=== PATIENT | female | born 1980 ===

== ENCOUNTER 2018-04-18 06:53 | Emergency (ER) | payer SELFPAY ==
[2018-04-18] MEDS ORDERED: Sodium Chloride 0.9% 1,000 ML IV ONE (07:25)
--- NOTE | 2018-04-18 07:27 | C.PDOC ---
History Of Present Illness 38 year old female presents to ED complains waking at 3am with right sided flank pain that radiates to the groin. She reports urinary frequency and having mild dysuria this morning. Patient states the pain has worsened and unrelieved by Tylenol and could not sleep prompting ED visit. She also reports nausea but no vomiting. Denies fever, chills, diarrhea, or vaginal bleeding. Time Seen by Provider: 04/18/18 07:20 Chief Complaint (Nursing): Abdominal Pain History Per: Patient History/Exam Limitations: no limitations Onset/Duration Of Symptoms: Hrs Current Symptoms Are (Timing): Still Present Radiation Of Pain To:: Flank Quality Of Discomfort: "Pain" Associated Symptoms: Nausea, Urinary Symptoms. denies: Vomiting, Diarrhea Alleviating Factors: None. denies: OTC Meds Recent travel outside of the [place]: No Additional History Per: Patient Past Medical History Reviewed: Historical Data, Nursing Documentation, Vital Signs Vital Signs: Last Vital Signs Temp 98 F 04/18/18 07:08 Pulse 72 04/18/18 07:08 Resp 20 04/18/18 07:08 BP 124/84 04/18/18 07:08 Pulse Ox 97 04/18/18 07:08 Family History: States: Unknown Family Hx - Social History Hx Alcohol Use: No Hx Substance Use: No Review Of Systems Except As Marked, All Systems Reviewed And Found Negative. Constitutional: Negative for: Fever, Chills Gastrointestinal: Positive for: Nausea. Negative for: Vomiting, Diarrhea, Constipation Genitourinary: Positive for: Dysuria, Frequency. Negative for: Incontinence, Hematuria, Vaginal Discharge, Vaginal Bleeding Musculoskeletal: Positive for: Back Pain (right flank) Neurological: Negative for: Weakness, Numbness Physical Exam - Physical Exam Appears: Non-toxic, Other (uncomfortable, pacing back and forth) Skin: Normal Color, Warm, Dry Head: Atraumatic, Normacephalic Eye(s): bilateral: Normal Inspection Oral Mucosa: Moist Neck: Normal ROM, Supple Chest: Symmetrical Cardiovascular: Rhythm Regular, No Murmur Respiratory: Normal Breath Sounds, No Rales, No Rhonchi, No Wheezing Gastrointestinal/Abdominal: Soft, No Tenderness, No Guarding, No Rebound Back: CVA Tenderness (mild right), No Vertebral Tenderness Extremity: Normal ROM Neurological/Psych: Oriented x3, Normal Speech ED Course And Treatment - Laboratory Results Result Diagrams: 10/04/18 07:28 04/18/18 07:28 O2 Sat by Pulse Oximetry: 97 (RA) Pulse Ox Interpretation: Normal - CT Scan/US ABd & Pelvis CT Other Rad Studies (CT/US): Read By Radiologist, Radiology Report Reviewed CT/US Interpretation: Accession No. : [id number]. Patient Name / ID : VICENTE FERNÁNDEZ / [id number]. Exam Date : 04/18/2018 07:48:52 ( Approved ). Study Comment : Sex / Age : F / 38Y. Creator : Shila Britton RT,CT. Dictator : Dom Gold MD. Shipping Processor : Rn Med Surg : Dom Gold MD. Approver2 : Report Date : 04/18/2018 07:53:11. My Comment : . Date of service: 04/18/2018. PROCEDURE: CT Abdomen and Pelvis without intravenous contrast. HISTORY: Right flank pain. COMPARISON: None. TECHNIQUE: Multiple contiguous axial images were performed through the abdomen and pelvis without the use of intravenous contrast. Subsequently, sagittal and coronal reformatted images were obtained. All radiation dose: Total exam DLP = 631 mGy-cm. This CT exam was performed using one or more of the following dose reduction techniques: Automated exposure control, adjustment of the mA and/or kV according to patient size, and/or use of iterative reconstruction technique. FINDINGS: LOWER THORAX: Mild nodular consolidation within the medial aspect of the right middle lobe. Additional focal nodular consolidation measuring 7.6 millimeter seen within medial aspect of the right lower lobe. Scattered atelectasis. LIVER: Mottled heterogeneous attenuation of the right hepatic lobe with several scattered hypoattenuated foci noted. This is of uncertain clinical etiology and further evaluation with a dedicated multiphasic contrast enhanced CT scan of the abdomen and pelvis is recommended. Underlying hepatic infiltrative process and/or disease is not excluded. Clinical correlation. GALLBLADDER AND BILE DUCTS: Unremarkable. PANCREAS: Unremarkable. No gross lesion or ductal dilatation. SPLEEN: Unremarkable. S plenule. ADRENALS: Unremarkable. No mass. KIDNEYS AND URETERS: Mild right hydroureteronephrosis extending to the level of an obstructing 3 millimeter calculus in the distal right ureter on series 3, image 154. Additional 2.5 millimeter calculus in the lower pole of the right kidney. VASCULATURE: Unremarkable. No aortic aneurysm. BOWEL: Underdistended and or mildly thickened colon. Correlation. APPENDIX: Unremarkable. Normal appendix. PERITONEUM: Unremarkable. No free fluid. No free air. LYMPH NODES: Unremarkable. No enlarged lymph nodes. BLADDER: Unremarkable. REPRODUCTIVE: Bulky heterogeneous uterus and bilateral adnexa. BONES: No acute fracture. OTHER FINDINGS: Punctate calcification in the left breast. Clinical correlation. Correlation with mammogram may be helpful if clinically indicated. IMPRESSION: Mild right hydroureteronephrosis extending to the level of an obstructing 3 millimeter calculus in the distal right ureter on series 3, image 154. Additional 2.5 millimeter calculus in the lower pole of the right kidney. Mottled heterogeneous attenuation of the right hepatic lobe with several scattered hypoattenuated foci noted. This is of uncertain clinical etiology and further evaluation with a dedicated multiphasic contrast enhanced CT scan of the abdomen and pelvis is recommended. Underlying hepatic infiltrative process and/or disease is not excluded. Clinical correlation. Punctate calcification in the left breast. Clinical correlation. Correlation with mammogram may be helpful if clinically indicated. Medical Decision Making Medical Decision Making: Impression: right flank tenderness, appears to be renal colic and possible stone Plan: * Labs * IV NS, Toradol, Zofran * CT A/P Progress: Labs reviewed mild hypokalemia and corrected with oral KCL. UA shows blood and LE. CT reviewed shows 3mm obstructing stone. Patient re-evaluated and was resting comfortably on stretcher and reported feeling better, pain had improved. Patient has no fever and stable vital signs. Discussed results of CT and lab findings with patient and the plan for discharge and to follow up with urologist. All questions answered. Patient agreed and feels comfortable with discharge and rx given. Disposition Counseled Patient/Family Regarding: Diagnosis, Need For Followup, Rx Given - Disposition Referrals: Jake Garcia MD [Staff Provider] - Disposition: HOME/ ROUTINE Disposition Time: 10:27 Condition: IMPROVED Additional Instructions: You were evaluated in ED today for flank pain and your studies show you have 3mm kidney stone which will likely pass. Drink plenty of fluids and take pain medicine as needed. Note Percocet is meant for severe pain, it is narcotic medication and can cause nausea/vomiting/drowsiness. Take Flomax to help urinate and excrete the stone. Take antibiotic for urine infection. Recommend follow up with urologist Prescriptions: Ciprofloxacin [Cipro] 1 tab PO BID #10 tab Ibuprofen [Motrin] 600 mg PO Q8 #30 tab oxyCODONE/Acetaminophen [Percocet 5/325 mg Tab] 1 tab PO Q8 PRN #10 tab PRN Reason: Pain, Severe (8-10) Tamsulosin [Flomax] 0.4 mg PO DAILY #10 cap Instructions: Kidney Stones (DC) Forms: [employer] (Kyrgyz) - POA Present On Arrival: None - Clinical Impression Clinical Impression: Nephrolithiasis - PA / STOCK CLERK / Resident Statement MD/DO has reviewed & agrees with the documentation as recorded. - Scribe Statement The provider has reviewed the documentation as recorded by the Scribe Baylee Rivera All medical record entries made by the Vicky were at my direction and personally dictated by me. I have reviewed the chart and agree that the record accurately reflects my personal performance of the history, physical exam, medical decision making, and the department course for this patient. I have also personally directed, reviewed, and agree with the discharge instructions and disposition.
[2018-04-18 07:35] LABS: BASO % 0.3 % (0.0-2.0); EOS # 0.2 K/uL (0.0-0.7); EOS % 2.8 % (0.0-4.0); HEMOGLOBIN 11.6 g/dL (11.0-16.0); LYMPH # 2.3 K/uL (1.0-4.3); LYMPH % 31.2 % (20.0-40.0); MEAN CELL VOLUME 83.5 fL (81.0-99.0); MEAN CORPUSCULAR HEMOGLOBIN 28.6 pg (27.0-31.0); MEAN CORPUSCULAR HGB CONC 34.3 g/dL (33.0-37.0); MONO # 0.4 K/uL (0.0-0.8); MONO % 5.8 % (0.0-10.0); NEUT # 4.4 K/uL (1.8-7.0); NEUT % 59.9 % (50.0-75.0); NRBC % 0.1 % (0.0-2.0); RBC 4.04 Mil/uL (3.80-5.20); WHITE BLOOD COUNT 7.3 K/uL (4.8-10.8)
[2018-04-18 07:43] LABS: SQUAMOUS EPITHIAL 16 /hpf (0-5); URINE BACTERIA RARE (<OCC); URINE BILIRUBIN NEGATIVE (NEGATIVE); URINE BLOOD 3+ (NEGATIVE); URINE CLARITY Hazy (Clear); URINE COLOR Yellow (YELLOW); URINE GLUCOSE (UA) NORMAL (Normal); URINE LEUKOCYTE ESTERASE 1+ Leu/uL (Negative); URINE PROTEIN 1+ mg/dL (NEGATIVE); URINE UROBILINOGEN NORMAL mg/dL (0.2-1.0)
[2018-04-18 07:50] LABS: ALB/GLOB RATIO 1.2 (1.0-2.1); ALBUMIN 4.1 g/dL (3.5-5.0); ALT/SGPT 15 U/L (9-52); AST/SGOT 15 U/L (14-36); BLOOD UREA NITROGEN 15 mg/dL (7-17); GFR NON-AFRICAN AMERICAN > 60
[2018-04-18] MEDS ORDERED: Dextrose 50% SYRINGE Inj (50 ml) IV STA (07:57)
[2018-04-18] MEDS ORDERED: Potassium Chloride 20 mEq ER Tab PO STA (08:11)
[2018-04-18] MEDS ORDERED: Potassium Chloride 20 mEq ER Tab PO ONE (08:19)
[2018-04-18 09:21] VITALS: RESP 18
--- NOTE | 2018-04-18 10:07 | CT ---
Date of service: 04/18/2018 PROCEDURE: CT Abdomen and Pelvis without intravenous contrast HISTORY: Right flank pain. COMPARISON: None. TECHNIQUE: Multiple contiguous axial images were performed through the abdomen and pelvis without the use of intravenous contrast. Subsequently, sagittal and coronal reformatted images were obtained. All radiation dose: Total exam DLP = 631 mGy-cm. This CT exam was performed using one or more of the following dose reduction techniques: Automated exposure control, adjustment of the mA and/or kV according to patient size, and/or use of iterative reconstruction technique. FINDINGS: LOWER THORAX: Mild nodular consolidation within the medial aspect of the right middle lobe. Additional focal nodular consolidation measuring 7.6 millimeter seen within medial aspect of the right lower lobe. Scattered atelectasis. LIVER: Mottled heterogeneous attenuation of the right hepatic lobe with several scattered hypoattenuated foci noted. This is of uncertain clinical etiology and further evaluation with a dedicated multiphasic contrast enhanced CT scan of the abdomen and pelvis is recommended. Underlying hepatic infiltrative process and/or disease is not excluded. Clinical correlation. GALLBLADDER AND BILE DUCTS: Unremarkable. PANCREAS: Unremarkable. No gross lesion or ductal dilatation. SPLEEN: Unremarkable. Splenule. ADRENALS: Unremarkable. No mass. KIDNEYS AND URETERS: Mild right hydroureteronephrosis extending to the level of an obstructing 3 millimeter calculus in the distal right ureter on series 3, image 154. Additional 2.5 millimeter calculus in the lower pole of the right kidney. VASCULATURE: Unremarkable. No aortic aneurysm. BOWEL: Underdistended and or mildly thickened colon. Correlation. APPENDIX: Unremarkable. Normal appendix. PERITONEUM: Unremarkable. No free fluid. No free air. LYMPH NODES: Unremarkable. No enlarged lymph nodes. BLADDER: Unremarkable. REPRODUCTIVE: Bulky heterogeneous uterus and bilateral adnexa. BONES: No acute fracture. OTHER FINDINGS: Punctate calcification in the left breast. Clinical correlation. Correlation with mammogram may be helpful if clinically indicated. IMPRESSION: Mild right hydroureteronephrosis extending to the level of an obstructing 3 millimeter calculus in the distal right ureter on series 3, image 154. Additional 2.5 millimeter calculus in the lower pole of the right kidney. Mottled heterogeneous attenuation of the right hepatic lobe with several scattered hypoattenuated foci noted. This is of uncertain clinical etiology and further evaluation with a dedicated multiphasic contrast enhanced CT scan of the abdomen and pelvis is recommended. Underlying hepatic infiltrative process and/or disease is not excluded. Clinical correlation. Punctate calcification in the left breast. Clinical correlation. Correlation with mammogram may be helpful if clinically indicated.
[2018-04-18 10:50] VITALS: BP 127/77; PULSE 61; TEMP 98.2
[2018-04-18 14:13] VITALS: O2SAT 97
== END 2018-04-18 10:54 | disposition home or self-care (01) ==
LOC: C.ER 06:53
DX: N13.2 Hydronephrosis with renal and ureteral calculous obstruction (principal); E87.6 Hypokalemia
CPT/HCPCS: 74176; 80053; 81001; 85025; 96361; 96374; 96375; 96376; 99285; J1885; J2405; J7030

== ENCOUNTER 2018-04-20 11:27 | Inpatient (IN) | payer MEDICAID ==
[2018-04-20] MEDS ORDERED: Sodium Chloride 0.9% 1,000 ML IV ONE ×3 (12:28→15:14)
--- NOTE | 2018-04-20 12:44 | C.PDOC ---
History Of Present Illness 38 years old female presents to ED for complaints of worsening right flank pain radiating to right groin. Patient reports associated symptoms of nausea, vomiting, vaginal bleeding, and constipation. Denies fever. Patient states she was seen on in [facility] and had an US/CT done and she was diagnosed with right sided kidney stones and discharged on Ibuprofen, Cipro, Flomax, and Oxycodon. Patient states symptoms are currently similar to previous. As per previous visit on 04/18/18, patient's CT/US show 3-mm calculi in distal right ureter with no comment on excess stool and right hydronephrosis. PMD: * No PMD Time Seen by Provider: 04/20/18 12:07 Chief Complaint (Nursing): Back Pain History Per: Patient History/Exam Limitations: no limitations Onset/Duration Of Symptoms: Hrs Current Symptoms Are (Timing): Still Present Quality Of Discomfort: "Pain" Previous Symptoms: None Associated Symptoms: None Exacerbating Factor(s): Movement Recent travel outside of the [place]: No Past Medical History Reviewed: Historical Data, Nursing Documentation, Vital Signs Vital Signs: Last Vital Signs Temp 98.3 F 04/20/18 11:42 Pulse 88 04/20/18 11:42 Resp 18 04/20/18 11:42 BP 106/71 04/20/18 11:42 Pulse Ox 100 04/20/18 11:42 - Medical History PMH: Kidney Stones Surgical History: No Surg Hx Family History: States: Unknown Family Hx - Social History Hx Alcohol Use: No Hx Substance Use: No Review Of Systems Constitutional: Negative for: Fever, Chills Gastrointestinal: Positive for: Nausea, Vomiting, Constipation. Negative for: Diarrhea Genitourinary: Positive for: Vaginal Bleeding Musculoskeletal: Positive for: Other (Right flank pain radiating to right groin ) Skin: Negative for: Rash Neurological: Negative for: Weakness, Numbness Physical Exam - Physical Exam Appears: Non-toxic, No Acute Distress, Other (Uncomfortable ) Skin: Normal Color, Warm, Dry, No Rash Head: Atraumatic, Normacephalic Eye(s): bilateral: Normal Inspection, PERRL, EOMI Oral Mucosa: Moist Neck: Supple Chest: Symmetrical, No Tenderness Cardiovascular: Rhythm Regular, No Murmur Respiratory: Normal Breath Sounds, No Decreased Breath Sounds, No Rales, No Rhonchi, No Wheezing Gastrointestinal/Abdominal: Bowel Sounds (Active ), Soft, No Tenderness, Distention (Full and firm), No Guarding, No Rebound Back: CVA Tenderness (Bilaterally but mostly on right side) Extremity: Normal ROM, No Deformity Extremity: Bilateral: Atraumatic, Normal Color And Temperature, Normal ROM Pulses: Left Radial: Normal, Right Radial: Normal Neurological/Psych: Oriented x3, Normal Speech Gait: Steady ED Course And Treatment - Laboratory Results Result Diagrams: 04/20/18 12:58 04/20/18 12:58 O2 Sat by Pulse Oximetry: 100 (RA) Pulse Ox Interpretation: Normal - Other Rad CXR X-Ray: Viewed By Me, Read By Radiologist Interpretation: Date of service: 04/20/2018. PROCEDURE: CHEST RADIOGRAPH, 1 VIEW. HISTORY: abd pain. COMPARISON: None available. FINDINGS: LUNGS: Poor inspiration with low lung volumes, crowded bronchovascular markings and mild bibasilar atelectasis right greater than left. Slight elevation right hemidiaphragm could be due to eventration. PLEURA: No pneumothorax or pleural fluid seen. CARDIOVASCULAR: Normal. OSSEOUS STRUCTURES: No significant abnormalities. VISUALIZED UPPER ABDOMEN: Normal. OTHER FINDINGS: None. IMPRESSION: Poor inspiration with low lung volumes, crowded bronchovascular markings and mild bibasilar atelectasis right greater than left. Slight elevation right hemidiaphragm could be due to eventration. Abdomen X-Ray X-Ray: Viewed By Me, Read By Radiologist Interpretation: Date of service: 04/20/2018. HISTORY: constipation. COMPARISON: The is. FINDINGS: BOWEL: Normal. No evidence bowel obstruction. No free intraperitoneal air. BONES: Normal. OTHER FINDINGS: None. IMPRESSION: No evidence of acute mechanical bowel obstruction Medical Decision Making Medical Decision Making: Plan: * IV fluids * Enulose * Fleet enema * CT Abdomen/Pelvis * Blood work * CXR * Abdomen X-Ray * Urinalysis Patient re-visit for renal colic. Patient afebrile, not tachy, but has elevated WBC and new onset RI. CT shows "tight kidney with standing". Will admit to hospitalist consult Disposition Discussed With : Rome Phillip Counseled Patient/Family Regarding: Studies Performed, Diagnosis - Disposition Disposition: HOSPITALIZED Disposition Time: 15:07 Condition: GUARDED Forms: [employer] (Turkmen) - Clinical Impression Clinical Impression: Renal insufficiency, Kidney stone, Constipation - Scribe Statement The provider has reviewed the documentation as recorded by the Morenoibnnea Laureano All medical record entries made by the Scribe were at my direction and personally dictated by me. I have reviewed the chart and agree that the record accurately reflects my personal performance of the history, physical exam, medical decision making, and the department course for this patient. I have also personally directed, reviewed, and agree with the discharge instructions and disposition. Decision To Admit - Pt Status Changed To: Hospital Disposition Of: Inpatient - Admit Certification Admit to Inpatient:: After my assessment, the patient will require hospitalization for at least two midnights. This is because of the severity of symptoms shown, intensity of services needed, and/or the medical risk in this patient being treated as an outpatient. - InPatient: Physician Admission Certification:: new RI, renal colic - . Bed Request Type: Regular Patient Diagnosis: Renal insufficiency, Kidney stone, Constipation
--- NOTE | 2018-04-20 12:53 | RAD ---
Date of service: 04/20/2018 PROCEDURE: CHEST RADIOGRAPH, 1 VIEW HISTORY: abd pain COMPARISON: None available. FINDINGS: LUNGS: Poor inspiration with low lung volumes, crowded bronchovascular markings and mild bibasilar atelectasis right greater than left. Slight elevation right hemidiaphragm could be due to eventration. PLEURA: No pneumothorax or pleural fluid seen. CARDIOVASCULAR: Normal. OSSEOUS STRUCTURES: No significant abnormalities. VISUALIZED UPPER ABDOMEN: Normal. OTHER FINDINGS: None. IMPRESSION: Poor inspiration with low lung volumes, crowded bronchovascular markings and mild bibasilar atelectasis right greater than left. Slight elevation right hemidiaphragm could be due to eventration.
[2018-04-20 13:03] LABS: BASO % 0.1 % (0.0-2.0); EOS # 0.1 K/uL (0.0-0.7); EOS % 0.8 % (0.0-4.0); HEMOGLOBIN 10.9 g/dL (11.0-16.0); LYMPH # 0.5 K/uL (1.0-4.3); LYMPH % 2.7 % (20.0-40.0); MEAN CELL VOLUME 83.4 fL (81.0-99.0); MEAN CORPUSCULAR HGB CONC 33.6 g/dL (33.0-37.0); MEAN PLATELET VOLUME 8.5 fL (7.2-11.7); MONO # 0.6 K/uL (0.0-0.8); MONO % 3.7 % (0.0-10.0); NEUT # 16.4 K/uL (1.8-7.0); NEUT % 92.7 % (50.0-75.0)
[2018-04-20 13:07] LABS: PLATELET COUNT 186 K/uL (130-400); WHITE BLOOD COUNT 17.7 K/uL (4.8-10.8)
[2018-04-20] MEDS ORDERED: Sodium Chloride 0.9% 1,000 ML ONE ×4 (13:14→18:23)
[2018-04-20 13:18] LABS: CALCIUM 8.4 mg/dl (8.6-10.4)
[2018-04-20 13:20] LABS: SQUAMOUS EPITHIAL 6 /hpf (0-5); URINE BACTERIA OCC (<OCC); URINE BILIRUBIN NEGATIVE (NEGATIVE); URINE BLOOD 3+ (NEGATIVE); URINE CLARITY Hazy (Clear); URINE COLOR Red (YELLOW); URINE GLUCOSE (UA) NORMAL (Normal); URINE LEUKOCYTE ESTERASE 3+ Leu/uL (Negative); URINE PROTEIN 2+ mg/dL (NEGATIVE); URINE UROBILINOGEN NORMAL mg/dL (0.2-1.0)
--- NOTE | 2018-04-20 13:34 | RAD ---
Date of service: 04/20/2018 HISTORY: constipation COMPARISON: The is FINDINGS: BOWEL: Normal. No evidence bowel obstruction. No free intraperitoneal air. BONES: Normal. OTHER FINDINGS: None. IMPRESSION: No evidence of acute mechanical bowel obstruction
[2018-04-20] MEDS ORDERED: cefTRIAXone IV 1 gm in Dextros 50 ML IVPB ONE (13:42)
[2018-04-20] MEDS ORDERED: Ciprofloxacin 400mg/200ml D5W 400 MG/200 ML BAG IVPB STA (13:42)
[2018-04-20 13:44] LABS: BANDS 3 % (0-2); LYMPHOCYTE 2 % (20-40); MONOCYTE 4 % (0-10); NEUTROPHIL 91 % (50-75); PLATELET ESTIMATE NORMAL (NORMAL); TOTAL CELLS COUNTED 100
[2018-04-20 13:45] LABS: ANISOCYTOSIS SLIGHT; HYPOCHROMIC SLIGHT; POIKILOCYTOSIS SLIGHT
[2018-04-20 14:58] LABS: VENOUS BLOOD GAS BASE EXCESS -4.8 mmol/L (0.0-2.0); VENOUS BLOOD GAS PCO2 38 mmHg (40-60); VENOUS BLOOD GAS PO2 27 mm/Hg (30-55); VENOUS BLOOD PH 7.34 (7.32-7.43)
--- NOTE | 2018-04-20 15:11 | CT ---
Date of service: 04/20/2018 PROCEDURE: CT Abdomen and Pelvis with Oral contrast. HISTORY: Abdominal pain COMPARISON: Comparison made with prior CT scan abdomen pelvis dated 04/18/2018. TECHNIQUE: Contiguous axial images of the abdomen and pelvis. . Coronal and Sagittal reformats generated. Radiation dose: Total exam DLP = 443.7 mGy-cm. This CT exam was performed using one or more of the following dose reduction techniques: Automated exposure control, adjustment of the mA and/or kV according to patient size, and/or use of iterative reconstruction technique. FINDINGS: LOWER THORAX: Localized atelectasis right and to a lesser degree left posterior sulci. Additionally, there is mild bibasilar dependent/passive type atelectasis. Scarring changes in the right middle lobe and possibly in the lingular region as well.. No evidence of effusion or basilar pneumothorax. Heart appears borderline/mildly enlarged. No significant pericardial effusion. Tiny hiatal hernia. . LIVER: Liver appears enlarged measuring nearly 20 cm in CC dimension. No obvious hepatic mass or collection seen on this noncontrast exam. GALLBLADDER AND BILE DUCTS: No obvious intraluminal gallbladder calculi. PANCREAS: Unremarkable. No mass. No ductal dilatation. SPLEEN: Spleen appears upper limits of normal in size. No splenic mass collection or calcification. ADRENALS: No adrenal lesions are identified. KIDNEYS AND URETERS: Right kidney appears enlarged with increased diameter and what appears represent some effacement of intramedullary fat. There are infiltration changes and a small amount of fluid seen in the adjacent perinephric fluid fat. Punctate calcification lower pole collecting system right kidney again noted. There is dilatation of the right renal pelvis and most of the right ureter. Previously noted tiny on calcification within the right UVJ region is not definitively seen on this exam and may have passed however the possibility of a ascending UTI/pyelonephritis must be considered. Clinical correlation recommended. Left kidney appears unremarkable. BLADDER: Urinary bladder incompletely distended which may in part account for thick-walled appearance however cystitis must be considered as well. Correlation with urinalysis. REPRODUCTIVE: Unremarkable as visualized APPENDIX: Normal-appearing appendix. BOWEL: . Evaluation of the bowel is limited due to the lack of oral contrast. Stomach is partially distended with food debris liquid and air. Visualized loops of small bowel exhibit normal contour and caliber. No evidence of acute mechanical small bowel obstruction. A moderate amount of stool seen within the cecum and ascending colon however most of the remaining colon appears relatively collapsed. PERITONEUM: Unremarkable. No fluid collection. No free air. Small fat containing umbilical hernia again noted. LYMPH NODES: Unremarkable. No enlarged lymph nodes. VASCULATURE: Unremarkable. No aortic aneurysm. BONES: No acute compression fractures no retropulsed fragments visualized lower thoracic or lumbar spine. OTHER FINDINGS: None. IMPRESSION: Punctate calcification lower pole collecting system right kidney. The right kidney is enlarged and appears to be under tension with increased diameter and some effacement of the intramedullary fat. There are mild perinephric infiltration changes with small amount of perinephric fluid. Right renal pelvis and most of the right ureter is dilated at however the previously noted tiny 3 mm calcification within the right UVJ region is not definitively identified at this time. Rule out UTI/pyelonephritis. Urinary bladder wall thickened in part due to incomplete distention or cystitis must also be considered. See above discussion for additional details and findings. Note that these findings discussed with Dr. Johnson at approximately 2:40 p.m. with written down and read back verification.
[2018-04-20] MEDS ORDERED: Ciprofloxacin 400mg/200ml D5W 400 MG/200 ML BAG IVPB ONE (15:35)
--- NOTE | 2018-04-20 17:44 | CP.PCM.HP ---
<Paco Foster - Last Filed: 04/20/18 23:03> History of Present Illness - History of Present Illness History of Present Illness: PGY2 Medicine H+P for Dr. Phillip Patient is a 38 year old female with a past medical history of recently diagnosed kidney stone presenting with worsening right sided flank pain. Patient was seen in ED at [facility] on 04/18 and was found to have 3mm stone in the right U VJ. She was discharged home with Ibuprofen, Cipro, Flomax, and Oxycodon. Patient reports taking her medications as directed but the pain has just continued to increase. The pain is located on her right flank and radiates down to her groin. She is also experiencing suprapubic pain as well. Earlier today she was nauseous and vomited. Patient denies any pain or burning with urination. She denies feve rs, chills, diarrhea, chest pain, shortness of breath, headache, palpitations, numbness or tingling. PMD: none PMH: kidney stone PSH: x2 Family: denies Social: never tobacco, social alcohol and denies illicit drug use Allergies: NKDA LMP: Mar 29 - reports she may have started menstrating today. Present on Admission - Present on Admission Any Indicators Present on Admission: No Review of Systems - Review of Systems All systems: reviewed and no additional remarkable complaints except - Constitutional Constitutional: As Per HPI - EENT Eyes: As Per HPI Ears: As Per HPI Nose/Mouth/Throat: As Per HPI - Breasts Breasts: As Per HPI - Cardiovascular Cardiovascular: As Per HPI - Respiratory Respiratory: As Per HPI - Gastrointestinal Gastrointestinal: As Per HPI - Genitourinary Genitourinary: As Per HPI - Menstruation Menstruation: As Per HPI - Musculoskeletal Musculoskeletal: As Per HPI - Integumentary Integumentary: As Per HPI - Neurological Neurological: As Per HPI - Psychiatric Psychiatric: As Per HPI - Endocrine Endocrine: As Per HPI - Hematologic/Lymphatic Hematologic: As Per HPI Past Patient History - Past Social History Smoking Status: Never Smoked - RENAL Hx Kidney Stones: Yes - PSYCHIATRIC Hx Substance Use: No - SURGICAL HISTORY Hx Surgeries: No - ANESTHESIA Hx Anesthesia: No Meds Allergies/Adverse Reactions: Allergies Allergy/AdvReac Type Severity Reaction Status Date / Time No Known Allergies Allergy Verified 04/18/18 07:11 Physical Exam - Constitutional Appears: Non-toxic, In Acute Distress (mild distress) - Head Exam Head Exam: ATRAUMATIC, NORMOCEPHALIC - Eye Exam Eye Exam: Normal appearance - ENT Exam ENT Exam: Mucous Membranes Moist - Neck Exam Neck exam: Negative for: Lymphadenopathy - Respiratory Exam Respiratory Exam: Clear to Auscultation Bilateral, NORMAL BREATHING PATTERN. absent: Accessory Muscle Use, Rales, Rhonchi, Wheezes, Respiratory Distress - Cardiovascular Exam Cardiovascular Exam: REGULAR RHYTHM, +S1, +S2 - GI/Abdominal Exam GI & Abdominal Exam: Guarding (right sided and suprapubic), Soft, Tenderness (right sided and suprapubic). absent: Distended, Firm, Hernia, Rigid - Extremities Exam Extremities exam: Positive for: pedal pulses present. Negative for: calf tenderness, pedal edema, tenderness - Back Exam Back exam: CVA tenderness (R). absent: CVA tenderness (L) - Neurological Exam Neurological exam: Alert, Oriented x3 - Psychiatric Exam Psychiatric exam: Normal Affect, Normal Mood - Skin Skin Exam: Dry, Warm Results - Vital Signs Recent Vital Signs: Last Vital Signs Temp 98.3 F 04/20/18 11:42 Pulse 91 H 04/20/18 14:14 Resp 17 04/20/18 14:14 BP 111/76 04/20/18 14:14 Pulse Ox 100 04/20/18 15:08 - Labs Result Diagrams: 04/20/18 12:58 04/20/18 12:58 Labs: Laboratory Results - last 24 hr 04/20/18 04/20/18 04/20/18 12:58 12:58 12:58 WBC 17.7 H D RBC 3.90 Hgb 10.9 L Hct 32.5 L MCV 83.4 MCH 28.0 MCHC 33.6 RDW 16.0 H Plt Count 186 D MPV 8.5 Neut % (Auto) 92.7 H Lymph % (Auto) 2.7 L Livingston % (Auto) 3.7 Eos % (Auto) 0.8 Baso % (Auto) 0.1 Neut # (Auto) 16.4 H Lymph # (Auto) 0.5 L Livingston # (Auto) 0.6 Eos # (Auto) 0.1 Baso # (Auto) 0.0 Neutrophils % (Manual) 91 H Band Neutrophils % 3 H Lymphocytes % (Manual) 2 L Monocytes % (Manual) 4 Platelet Estimate Normal Hypochromasia (manual) Slight Poikilocytosis (manual Slight Anisocytosis (manual) Slight pO2 VBG pH VBG pCO2 VBG HCO3 VBG Total CO2 VBG O2 Sat (Calc) VBG Base Excess VBG Potassium Glucose Lactate FiO2 Sodium 136 Potassium 3.2 L Chloride 100 Carbon Dioxide 21 L Anion Gap 18 BUN 52 H Creatinine 3.9 H Est GFR ( Amer) 15 Est GFR (Non-Af Amer) 13 Random Glucose 111 H Calcium 8.4 L Venous Blood Potassium Urine Color Red Urine Clarity Hazy Urine pH 5.0 Ur Specific Arthur 1.006 Urine Protein 2+ H Urine Glucose (UA) Normal Urine Ketones Negative Urine Blood 3+ H Urine Nitrate Negative Urine Bilirubin Negative Urine Urobilinogen Normal Ur Leukocyte Esterase 3+ H Urine WBC (Auto) 3560 H Urine RBC (Auto) 4133 H Ur Squamous Epith Cells 6 H Urine Bacteria Occ H 04/20/18 14:52 WBC RBC Hgb Hct MCV MCH MCHC RDW Plt Count MPV Neut % (Auto) Lymph % (Auto) Livingston % (Auto) Eos % (Auto) Baso % (Auto) Neut # (Auto) Lymph # (Auto) Livingston # (Auto) Eos # (Auto) Baso # (Auto) Neutrophils % (Manual) Band Neutrophils % Lymphocytes % (Manual) Monocytes % (Manual) Platelet Estimate Hypochromasia (manual) Poikilocytosis (manual Anisocytosis (manual) pO2 27 L VBG pH 7.34 VBG pCO2 38 L VBG HCO3 19.8 VBG Total CO2 21.7 L VBG O2 Sat (Calc) 52.2 VBG Base Excess -4.8 L VBG Potassium 3.1 L Glucose 108 H Lactate 1.5 FiO2 21.0 Sodium 136.0 Potassium Chloride 106.0 Carbon Dioxide Anion Gap BUN Creatinine Est GFR ( Amer) Est GFR (Non-Af Amer) Random Glucose Calcium Venous Blood Potassium 3.1 L Urine Color Urine Clarity Urine pH Ur Specific Arthur Urine Protein Urine Glucose (UA) Urine Ketones Urine Blood Urine Nitrate Urine Bilirubin Urine Urobilinogen Ur Leukocyte Esterase Urine WBC (Auto) Urine RBC (Auto) Ur Squamous Epith Cells Urine Bacteria Assessment & Plan - Assessment and Plan (Free Text) Plan: Pyelonephritis/UTI/Hydronephrosis Urology consulted, Dr. Garcia hx of recent right sided kidney stone Abd/Pelvic CT w/o: * Punctate calcification lower pole collecting system right kidney. The right kidney is enlarged and appears to be under tension with increased diameter and some effacement of the intramedullary fat. There are mild perinephric infil tration changes with small amount of perinephric fluid. Right renal pelvis and most of the right ureter is dilated at however the previously noted tiny 3 mm calcification within the right UVJ region is not definitively identified at this time. Rule out UTI/pyelonephritis. Urinary bladder wall thickened in part due to incomplete distention or cystitis must also be considered. afebrile Leukocytosis, WBC 17.7 (was 7.3 on 04/18/18) * Neut 92.7%, Bands 3% UA: color Red, protein 2+, Blood 3+, Leuk Est 3+, WBC 3560, RBC 4133 * patient reports she believes she started menstrating today. Urin culture pending Blood Cultures pending (obtained after first dose of abx in ED) Medications: * Primaxin 500mg IVPB q6h (started on 04/20) * Morphine 2mg IVP q4h prn * Zofran 4mg IVP q6h prn * NS @100mL/hr Received one dose of Cipro IV and Rocephin IV while in ED. Acute Kidney Injury Cr 3.9 (was 0.8 on 04/18/18) continue to monitor see plan above Prophylactic Care VTE - SCDs only, patient ambulates GI - not indicated DISPO: Patient is to be made NPO past MN in case urology wants to do procedure tomorrow. Will discuss with Uro early tomorrow (04/21) and if no procedure planned, ok to feed patient. Case discussed with Dr. Marjan Foster PGY2 <Rome Phillip - Last Filed: 04/21/18 07:48> Results - Vital Signs Recent Vital Signs: Last Vital Signs Temp 99.2 F 04/20/18 23:49 Pulse 77 04/20/18 23:49 Resp 18 04/20/18 23:49 BP 118/78 04/20/18 23:49 Pulse Ox 99 04/20/18 23:49 - Labs Result Diagrams: 04/20/18 12:58 04/20/18 12:58 Labs: Laboratory Results - last 24 hr 04/20/18 04/20/18 04/20/18 12:58 12:58 12:58 WBC 17.7 H D RBC 3.90 Hgb 10.9 L Hct 32.5 L MCV 83.4 MCH 28.0 MCHC 33.6 RDW 16.0 H Plt Count 186 D MPV 8.5 Neut % (Auto) 92.7 H Lymph % (Auto) 2.7 L Livingston % (Auto) 3.7 Eos % (Auto) 0.8 Baso % (Auto) 0.1 Neut # (Auto) 16.4 H Lymph # (Auto) 0.5 L Livingston # (Auto) 0.6 Eos # (Auto) 0.1 Baso # (Auto) 0.0 Neutrophils % (Manual) 91 H Band Neutrophils % 3 H Lymphocytes % (Manual) 2 L Monocytes % (Manual) 4 Platelet Estimate Normal Hypochromasia (manual) Slight Poikilocytosis (manual Slight Anisocytosis (manual) Slight pO2 VBG pH VBG pCO2 VBG HCO3 VBG Total CO2 VBG O2 Sat (Calc) VBG Base Excess VBG Potassium Glucose Lactate FiO2 Sodium 136 Potassium 3.2 L Chloride 100 Carbon Dioxide 21 L Anion Gap 18 BUN 52 H Creatinine 3.9 H Est GFR ( Amer) 15 Est GFR (Non-Af Amer) 13 Random Glucose 111 H Calcium 8.4 L Venous Blood Potassium Urine Color Red Urine Clarity Hazy Urine pH 5.0 Ur Specific Arthur 1.006 Urine Protein 2+ H Urine Glucose (UA) Normal Urine Ketones Negative Urine Blood 3+ H Urine Nitrate Negative Urine Bilirubin Negative Urine Urobilinogen Normal Ur Leukocyte Esterase 3+ H Urine WBC (Auto) 3560 H Urine RBC (Auto) 4133 H Ur Squamous Epith Cells 6 H Urine Bacteria Occ H Urine HCG, Qual 04/20/18 04/21/18 14:52 04:30 WBC RBC Hgb Hct MCV MCH MCHC RDW Plt Count MPV Neut % (Auto) Lymph % (Auto) Livingston % (Auto) Eos % (Auto) Baso % (Auto) Neut # (Auto) Lymph # (Auto) Livingston # (Auto) Eos # (Auto) Baso # (Auto) Neutrophils % (Manual) Band Neutrophils % Lymphocytes % (Manual) Monocytes % (Manual) Platelet Estimate Hypochromasia (manual) Poikilocytosis (manual Anisocytosis (manual) pO2 27 L VBG pH 7.34 VBG pCO2 38 L VBG HCO3 19.8 VBG Total CO2 21.7 L VBG O2 Sat (Calc) 52.2 VBG Base Excess -4.8 L VBG Potassium 3.1 L Glucose 108 H Lactate 1.5 FiO2 21.0 Sodium 136.0 Potassium Chloride 106.0 Carbon Dioxide Anion Gap BUN Creatinine Est GFR ( Amer) Est GFR (Non-Af Amer) Random Glucose Calcium Venous Blood Potassium 3.1 L Urine Color Urine Clarity Urine pH Ur Specific Arthur Urine Protein Urine Glucose (UA) Urine Ketones Urine Blood Urine Nitrate Urine Bilirubin Urine Urobilinogen Ur Leukocyte Esterase Urine WBC (Auto) Urine RBC (Auto) Ur Squamous Epith Cells Urine Bacteria Urine HCG, Qual Negative Attending/Attestation - Attestation I have personally seen and examined this patient.: Yes I have fully participated in the care of the patient.: Yes I have reviewed all pertinent clinical information: Yes Notes (Text): 04/21/18 07:43 Medical attending: Patient was seen and examined by me last night with the medical residents in the ER. Reviewed the above note by the resident and agree with the note As mentioned above in the resident's note, the patient was just here recenlty and now returns with worsening on symptoms. Review of lab work shows there is also an increase in the creatine from her baseline as well. The new CT scan showing stranding and hydronephrosis as well. This new CT scan no longer shows a stone like the previous CT did. When asked if she recently passed a stone urinating the patient explains that she does not remember if she did or not. The patient on exam is quite tender to even light palpation of the R flank as well as to the R abdomen. She has to move slowly otherwise the R flank can become painful. Will start IV abx and also IVF. Because of the sudden elevation of her creatine will get urology evaluation as well. Per the ER nursing staff, blood cultures were not drawn yet and the patient had already recieved abx. The urine culture was collected before giving abx. Rome Phillip
[2018-04-20] MEDS: Sodium Chloride 0.9% 1,000 ML IV SCH (18:37)
[2018-04-21] MEDS: Sodium Chloride 0.9% 1,000 ML IV SCH ×4 (01:45→22:57)
[2018-04-21 08:55] LABS: BASO % 0.3 % (0.0-2.0); EOS % 0.2 % (0.0-4.0); HEMOGLOBIN 9.9 g/dL (11.0-16.0); LYMPH # 0.7 K/uL (1.0-4.3); LYMPH % 4.7 % (20.0-40.0); MEAN CELL VOLUME 84.8 fL (81.0-99.0); MEAN CORPUSCULAR HEMOGLOBIN 28.5 pg (27.0-31.0); MEAN CORPUSCULAR HGB CONC 33.5 g/dL (33.0-37.0); MEAN PLATELET VOLUME 9.2 fL (7.2-11.7); MONO # 0.7 K/uL (0.0-0.8); MONO % 5.1 % (0.0-10.0); NEUT # 12.7 K/uL (1.8-7.0); NEUT % 89.7 % (50.0-75.0); NRBC % 0.1 % (0.0-2.0); PLATELET COUNT 151 K/uL (130-400); RBC 3.49 Mil/uL (3.80-5.20); RED CELL DISTRIBUTION WIDTH 16.4 % (11.5-14.5); WHITE BLOOD COUNT 14.2 K/uL (4.8-10.8)
[2018-04-21 09:14] LABS: CALCIUM 7.7 mg/dl (8.6-10.4)
[2018-04-21 10:26] LABS: INR 1.3; PROTHROMBIN TIME 14.6 SECONDS (9.7-12.2)
[2018-04-21] MEDS ORDERED: Iohexol 240 (50 ml) ONE (10:27)
[2018-04-21] MEDS ORDERED: Lidocaine 2% Jelly (Uro-Jet) ONE (10:28)
[2018-04-21 10:47] LABS: BANDS 3 % (0-2); LYMPHOCYTE 3 % (20-40); MONOCYTE 4 % (0-10); NEUTROPHIL 90 % (50-75); TOTAL CELLS COUNTED 100
[2018-04-21 10:48] LABS: ANISOCYTOSIS SLIGHT; BURR CELLS SLIGHT; HYPOCHROMIC SLIGHT; PLATELET ESTIMATE NORMAL (NORMAL); POIKILOCYTOSIS SLIGHT; POLYCHROMIC SLIGHT
[2018-04-21 10:49] LABS: LARGE PLATELETS PRESENT
[2018-04-21 10:50] LABS: TOXIC GRANULATION PRESENT
[2018-04-21] MEDS ORDERED: Propofol 10 mg/ml Inj (20 ML) ONE (11:06)
[2018-04-21] MEDS ORDERED: Midazolam 2 MG/2 ML VIAL ONE (11:06)
--- NOTE | 2018-04-21 13:51 | RAD ---
Date of service: 04/21/2018 PROCEDURE: Intraoperative Fluoroscopy. HISTORY: RT. RENAL CALCULI FINDINGS: Fluoroscopic assistance was provided. Fluoroscopy time = 15 sec. Radiation dose = [id number] mGy Please refer to the operative report from FAMILIA Gaitan, , MD [facility].
--- NOTE | 2018-04-21 13:57 | RAD ---
Date of service: 04/21/2018 HISTORY: RT. RENAL STONE COMPARISON: Comparison made with prior abdominal and CT scan of the abdomen pelvis dated 04/20/2018. FINDINGS: BOWEL: Normal. No obstruction. No free air. BONES: Normal. OTHER FINDINGS: Multiple small bilateral rounded/elliptical shaped calcifications overlying the inferior true pelvis on are present and partially obscured by kassandra tray artifact. IMPRESSION: Multiple small bilateral rounded/elliptical shaped calcifications overlying the inferior true pelvis on are present and partially obscured by kassandra tray artifact.
--- NOTE | 2018-04-21 21:19 | CP.PCM.PN ---
<Paco Foster - Last Filed: 04/21/18 21:13> Subjective - Date & Time of Evaluation Date of Evaluation: 04/21/18 Time of Evaluation: 10:45 - Subjective Subjective: PGY2 Medicine Note for Dr. Reyes Patient seen and examined this morning at bedside. No acute events overnight. Patient states she is feeling much better today but is still experiencing mild RLQ/right flank pain. She was nauseous overnight but is currently not nauseous and did not vomit. She is urinating and does not have any burning or pain with urination. Denies fevers, chills, nauseous, vomiting, diarrhea, constipation, chest pain, shortness of breath, headaches, numbness or chills. Objective - Vital Signs/Intake and Output Vital Signs (last 24 hours): Temp Pulse Resp BP Pulse Ox 99.4 F 70 20 125/74 97 04/21/18 16:00 04/21/18 16:00 04/21/18 16:00 04/21/18 16:00 04/21/18 16:00 Intake and Output: 04/21/18 04/22/18 18:59 06:59 Intake Total 1300 Balance 1300 - Medications Medications: Current Medications Docusate Sodium (Colace) 100 mg PO TID PRN PRN Reason: Constipation Sodium Chloride (Sodium Chloride 0.9%) 1,000 mls @ 100 mls/hr IV .Q10H [facility] Last Admin: 04/21/18 13:42 Dose: Not Given Imipenem/Cilastatin Sodium 500 (mg/ Sodium Chloride) 100 mls @ 100 mls/hr IVPB Q6H [facility]; Protocol Last Admin: 04/21/18 17:54 Dose: 100 mls/hr Influenza Virus Vaccine (Fluzone Quad [id number]) 60 mcg IM .ONCE ONE Stop: 04/22/18 10:01 Morphine Sulfate (Morphine) 2 mg IVP Q4H PRN PRN Reason: Pain, moderate (4-7) Last Admin: 04/21/18 04:25 Dose: 2 mg Ondansetron HCl (Zofran Inj) 4 mg IVP Q6 PRN PRN Reason: Nausea/Vomiting Last Admin: 04/21/18 06:50 Dose: 4 mg Pneumococcal Polyvalent Vaccine (Pneumovax 23 Vaccine) 0.5 ml IM .ONCE ONE Stop: 04/22/18 10:01 - Labs Labs: 04/21/18 08:43 04/21/18 08:43 PT 14.6 SECONDS (9.7-12.2) H 04/21/18 09:59 INR 1.3 04/21/18 09:59 - Additional Findings Additional findings: - Constitutional Appears: Non-toxic, No Acute Distress - Head Exam Head Exam: ATRAUMATIC, NORMOCEPHALIC - Eye Exam Eye Exam: Normal appearance - ENT Exam ENT Exam: Mucous Membranes Moist - Neck Exam Neck exam: Negative for: Lymphadenopathy - Respiratory Exam Respiratory Exam: Clear to Auscultation Bilateral, NORMAL BREATHING PATTERN. absent: Accessory Muscle Use, Rales, Rhonchi, Wheezes, Respiratory Distress - Cardiovascular Exam Cardiovascular Exam: REGULAR RHYTHM, +S1, +S2 - GI/Abdominal Exam GI & Abdominal Exam: Guarding (right sided), Soft, Tenderness (mild, RLQ). absent: Distended, Firm, Hernia, Rigid - Extremities Exam Extremities exam: Positive for: pedal pulses present. Negative for: calf tenderness, pedal edema, tenderness - Back Exam Back exam: CVA tenderness (R). absent: CVA tenderness (L) - Neurological Exam Neurological exam: Alert, Oriented x3 - Psychiatric Exam Psychiatric exam: Normal Affect, Normal Mood - Skin Skin Exam: Dry, Warm Assessment and Plan - Assessment and Plan (Free Text) Plan: Pyelonephritis/UTI/Hydronephrosis Urology consulted, Dr. Garcia * Patient underwent cystoscopy with placement of right ureteral stent * f/u further uro recs hx of recent right sided kidney stone Abd/Pelvic CT w/o: * Punctate calcification lower pole collecting system right kidney. The right kidney is enlarged and appears to be under tension with increased diameter and some effacement of the intramedullary fat. There are mild perinephric infiltration changes with small amount of perinephric fluid. Right renal pelvis and most of the right ureter is dilated at however the previously noted tiny 3 mm calcification within the right UVJ region is not definitively identified at this time. Rule out UTI/pyelonephritis. Urinary bladder wall thickened in part due to incomplete distention or cystitis must also be considered. afebrile Leukocytosis, WBC 14.2 (was 17.7 on 04/20/18) * Neut 89.7%, Bands 3% UA: color Red, protein 2+, Blood 3+, Leuk Est 3+, WBC 3560, RBC 4133 * patient believes she is menstrating Urine culture no growth Blood Cultures no growth at 24 hours (obtained after first dose of abx in ED) Medications: * Primaxin 500mg IVPB q6h (started on 04/20) * Morphine 2mg IVP q4h prn * Zofran 4mg IVP q6h prn * NS @100mL/hr Received one dose of Cipro IV and Rocephin IV while in ED. Acute Kidney Injury Cr downtrending to 3.3 from 3.9 (was 0.8 on 04/18/18) continue to monitor see plan above Prophylactic Care VTE - SCDs only, patient ambulates GI - not indicated DISPO: Patient underwent cystoscopy with Dr. Garcia. f/u additional recs from uro Case discussed with Dr. Eric Foster PGY2 <Torrie Reyes V - Last Filed: 04/22/18 21:20> Objective - Vital Signs/Intake and Output Vital Signs (last 24 hours): Temp Pulse Resp BP Pulse Ox 98.4 F 58 L 20 146/90 100 04/22/18 17:23 04/22/18 17:23 04/22/18 17:23 04/22/18 17:23 04/22/18 17:23 Intake and Output: 04/22/18 04/23/18 18:59 06:59 Intake Total 1280 Balance 1280 - Medications Medications: Current Medications Docusate Sodium (Colace) 100 mg PO BID [facility] Last Admin: 04/22/18 17:31 Dose: 100 mg Sodium Chloride (Sodium Chloride 0.9%) 1,000 mls @ 100 mls/hr IV .Q10H [facility] Last Admin: 04/22/18 15:09 Dose: 100 mls/hr Ceftriaxone Sodium 1 gm/ (Sodium Chloride) 100 mls @ 200 mls/hr IVPB DAILY [facility]; Protocol Morphine Sulfate (Morphine) 2 mg IVP Q4H PRN PRN Reason: Pain, moderate (4-7) Last Admin: 04/21/18 04:25 Dose: 2 mg Ondansetron HCl (Zofran Inj) 4 mg IVP Q6 PRN PRN Reason: Nausea/Vomiting Last Admin: 04/22/18 11:23 Dose: 4 mg - Labs Labs: 04/22/18 07:22 04/22/18 07:22 PT 14.6 SECONDS (9.7-12.2) H 04/21/18 09:59 INR 1.3 04/21/18 09:59 Attending/Attestation - Attestation I have personally seen and examined this patient.: Yes I have fully participated in the care of the patient.: Yes I have reviewed all pertinent clinical information, including history, physical exam and plan: Yes Notes (Text): this is late computer entry for 04/21/18. Patient seen, examined, and case discussed medical affairs specialist. Patient scheduled for cystoscopy with placement of right ureteral stent this morning with urology. Patient seen post OR. Patient reports she is doing ok. Patient sitting upright wanting to use the bathroom. Patient reports mild dysuria on my exam. Assessment/Plan 1) Pyelonephritis/UTI/Hydronephrosis/ Renal Colic Assessment/Plan * Urology consulted, Dr. Jake Garcia on case * Patient underwent cystoscopy with placement of right ureteral stent on 04/21/18 * hx of recent right sided kidney stone Abd/Pelvic CT w/o: * Punctate calcification lower pole collecting system right kidney. The right kidney is enlarged and appears to be under tension with increased diameter and some effacement of the intramedullary fat. There are mild perinephric infiltration changes with small amount of perinephric fluid. Right renal pelvis and most of the right ureter is dilated at however the previously noted tiny 3 mm calcification within the right UVJ region is not definitively identified at this time. Rule out UTI/pyelonephritis. Urinary bladder wall thickened in part due to incomplete distention or cystitis must also be c onsidered. afebrile Leukocytosis, WBC 14.2 (was 17.7 on 04/20/18) * Neut 89.7%, Bands 3% UA: color Red, protein 2+, Blood 3+, Leuk Est 3+, WBC 3560, RBC 4133 * patient believes she is menstruating Urine culture no growth Blood Cultures no growth at 24 hours (obtained after first dose of abx in ED) Medications: * Primaxin 500mg IVPB q6h (started on 04/20) * Morphine 2mg IVP q4h prn * Zofran 4mg IVP q6h prn * NS @100mL/hr Received one dose of Cipro IV and Rocephin IV while in ED. 2) Acute Kidney Injury Obstructive Uropathy Assessment/Plan * Cr downtrending to 3.3 from 3.9 (was 0.8 on 04/18/18) * continue to monitor * see plan above 3) Prophylactic Care * VTE - SCDs only, patient ambulates * GI - not indicated DISPO: Patient underwent cystoscopy with Dr. Garcia today. Will need to f/u post procedure.
[2018-04-22] MEDS: Sodium Chloride 0.9% 1,000 ML IV SCH ×4 (02:10→17:50)
[2018-04-22 07:32] LABS: BASO # 0.1 K/uL (0.0-0.2); BASO % 0.5 % (0.0-2.0); EOS # 0.1 K/uL (0.0-0.7); EOS % 0.8 % (0.0-4.0); HEMOGLOBIN 9.8 g/dL (11.0-16.0); LYMPH % 8.6 % (20.0-40.0); MEAN CELL VOLUME 83.7 fL (81.0-99.0); MEAN CORPUSCULAR HEMOGLOBIN 28.3 pg (27.0-31.0); MEAN CORPUSCULAR HGB CONC 33.8 g/dL (33.0-37.0); MEAN PLATELET VOLUME 8.3 fL (7.2-11.7); NEUT % 82.1 % (50.0-75.0); NRBC % 0.1 % (0.0-2.0); PLATELET COUNT 205 K/uL (130-400); RBC 3.47 Mil/uL (3.80-5.20); RED CELL DISTRIBUTION WIDTH 16.5 % (11.5-14.5); WHITE BLOOD COUNT 12.1 K/uL (4.8-10.8)
[2018-04-22 07:47] LABS: ALB/GLOB RATIO 0.9 (1.0-2.1); ALBUMIN 2.9 g/dL (3.5-5.0); CALCIUM 8.2 mg/dl (8.6-10.4)
[2018-04-22] MEDS ORDERED: Potassium Chloride 20 mEq/15 ml LIQ UD PO ONE ×2 (08:31→10:00)
[2018-04-22 09:08] VITALS: RESP 20
[2018-04-22] MEDS ORDERED: Pneumococcal 23-Valent Vaccine IM ONE (10:00)
[2018-04-22] MEDS ORDERED: Influenza Vaccine 60 MCG/0.5 ML SYR (3 yr & up) IM ONE ×2 (10:00)
[2018-04-22 10:20] LABS: BANDS 1 % (0-2); LYMPHOCYTE 4 % (20-40); MONOCYTE 5 % (0-10); NEUTROPHIL 90 % (50-75); TOTAL CELLS COUNTED 100
[2018-04-22 10:22] LABS: ANISOCYTOSIS SLIGHT; PLATELET ESTIMATE NORMAL (NORMAL)
[2018-04-22 10:27] LABS: HYPOCHROMIC SLIGHT; POLYCHROMIC SLIGHT
--- NOTE | 2018-04-22 15:04 | US ---
Date of service: 04/22/2018 PROCEDURE: Ultrasound of the Kidneys HISTORY: elevated Cr, eval interval change COMPARISON: CT abdomen and pelvis without contrast performed 04/20/18 TECHNIQUE: Sonogram of the kidneys. FINDINGS: RIGHT KIDNEY: Measures: 12.3 x 5.9 x 6.8 cm. Echogenic renal parenchyma. No obstructing calculus, hydronephrosis, or renal cyst identified. LEFT KIDNEY: Measures: 12.2 x 5.9 x 5.9 cm. Echogenic renal parenchyma. No obstructing calculus, hydronephrosis, or renal cyst identified. OTHER FINDINGS: None. IMPRESSION: Bilateral echogenic renal parenchyma may be seen in the setting of medical renal disease.
--- NOTE | 2018-04-22 17:25 | CP.PCM.PN ---
<Rick Sparrow - Last Filed: 04/22/18 17:23> Subjective - Date & Time of Evaluation Date of Evaluation: 04/22/18 Time of Evaluation: 08:30 - Subjective Subjective: Medicine Progress Note for Hospitalist Service Pt seen and examined at bedside. Denies any acute complaints currently. Reports she had one episode of vomiting last night after drinking water and leilani raymond too fast, but states that her nausea and abd pain have resolved. Reports constipation since her cystoscopy procedure. Observed tolerating PO diet well this am. No acute events reported overnight. Reports dysuria is improving, only mild burning with urination this am. Objective - Vital Signs/Intake and Output Vital Signs (last 24 hours): Temp Pulse Resp BP Pulse Ox 98.5 F 61 20 108/67 97 04/22/18 09:06 04/22/18 09:06 04/22/18 09:06 04/22/18 09:06 04/22/18 09:06 Intake and Output: 04/22/18 04/22/18 06:59 18:59 Intake Total 800 1280 Balance 800 1280 - Medications Medications: Current Medications Docusate Sodium (Colace) 100 mg PO BID [facility] Sodium Chloride (Sodium Chloride 0.9%) 1,000 mls @ 100 mls/hr IV .Q10H [facility]I Last Admin: 04/22/18 15:09 Dose: 100 mls/hr Ceftriaxone Sodium 1 gm/ (Sodium Chloride) 100 mls @ 200 mls/hr IVPB DAILY [facility]; Protocol Morphine Sulfate (Morphine) 2 mg IVP Q4H PRN PRN Reason: Pain, moderate (4-7) Last Admin: 04/21/18 04:25 Dose: 2 mg Ondansetron HCl (Zofran Inj) 4 mg IVP Q6 PRN PRN Reason: Nausea/Vomiting Last Admin: 04/22/18 11:23 Dose: 4 mg - Labs Labs: 04/22/18 07:22 04/22/18 07:22 PT 14.6 SECONDS (9.7-12.2) H 04/21/18 09:59 INR 1.3 04/21/18 09:59 - Constitutional Appears: Non-toxic, No Acute Distress - Head Exam Head Exam: ATRAUMATIC, NORMOCEPHALIC - Eye Exam Eye Exam: EOMI, Normal appearance, PERRL - ENT Exam ENT Exam: Mucous Membranes Moist - Respiratory Exam Respiratory Exam: Clear to Ausculation Bilateral, NORMAL BREATHING PATTERN. absent: Rales, Rhonchi, Wheezes - Cardiovascular Exam Cardiovascular Exam: REGULAR RHYTHM, +S1, +S2. absent: Gallop, Rubs, Murmur - GI/Abdominal Exam GI & Abdominal Exam: Distended, Soft, Normal Bowel Sounds. absent: Firm, Guarding, Rigid, Tenderness, Organomegaly, Rebound - Extremities Exam Extremities Exam: Full ROM, Normal Capillary Refill, Normal Inspection. absent: Calf Tenderness, Pedal Edema - Back Exam Back Exam: Full ROM, NORMAL INSPECTION. absent: CVA tenderness (L), CVA tenderness (R) - Neurological Exam Neurological Exam: Alert, Awake, CN II-XII Intact, Normal Gait, Oriented x3 - Psychiatric Exam Psychiatric exam: Normal Affect, Normal Mood - Skin Skin Exam: Dry, Intact, Normal Color, Warm Assessment and Plan - Assessment and Plan (Free Text) Plan: Pyelonephritis/UTI/Hydronephrosis Urology consulted, Dr. Garcia Patient underwent cystoscopy with placement of right ureteral stent F/u further uro recs Hx of recent right sided kidney stone Abd/Pelvic CT w/o: Punctate calcification lower pole collecting system right kidney. The right kidney is enlarged and appears to be under tension with increased diameter and some effacement of the intramedullary fat. There are mild perinephric infiltration changes with small amount of perinephric fluid. Right renal pelvis and most of the right ureter is dilated at however the previously noted tiny 3 mm calcification within the right UVJ region is not definitively identified at this time. Rule out UTI/pyelonephritis. Urinary bladder wall thickened in part due to incomplete distention or cystitis must also be considered. Afebrile, vitals stable Leukocytosis, WBC 12.2 (was 17.7 on 04/20/18) UA: color Red, protein 2+, Blood 3+, Leuk Est 3+, WBC 3560, RBC 4133 (patient stated she is menstrating) Urine culture (04/20) no growth Blood Cultures (04/20) neg x 24 hrs Medications: Primaxin 500mg IVPB q6h (started on 04/20; d/c'd today); started Rocephin 1 g daily today Morphine 2mg IVP q4h prn Zofran 4mg IVP q6h prn NS @100mL/hr Received one dose of Cipro IV and Rocephin IV while in ED. Acute Kidney Injury Cr 3.4 today from 3.3 yesterday (was 0.8 on 04/18/18) Continue to monitor Nephro consulted (Dr. Kirby), recs appreciated F/u bladder scan, repeat renal U/s Constipation - added colace 100 mg bid, pt has not had BM since before procedure, continue to monitor Prophylactic Care VTE - SCDs only, patient ambulates GI - not indicated DISPO: Patient underwent cystoscopy with Dr. Garcia POD#1. F/u nephro recs, will continue to trend creatinine. Pt seen, examined with, and plan discussed with Dr. Reyes, attending. Rick Sparrow DO PGY-1, [employer] Technician Pager #[phone] <Torrie Reyes V - Last Filed: 04/22/18 21:26> Objective - Vital Signs/Intake and Output Vital Signs (last 24 hours): Temp Pulse Resp BP Pulse Ox 98.4 F 58 L 20 146/90 100 04/22/18 17:23 04/22/18 17:23 04/22/18 17:23 04/22/18 17:23 04/22/18 17:23 Intake and Output: 04/22/18 04/23/18 18:59 06:59 Intake Total 1280 Balance 1280 - Medications Medications: Current Medications Docusate Sodium (Colace) 100 mg PO BID [facility] Last Admin: 04/22/18 17:31 Dose: 100 mg Sodium Chloride (Sodium Chloride 0.9%) 1,000 mls @ 100 mls/hr IV .Q10H NGOZI Last Admin: 04/22/18 15:09 Dose: 100 mls/hr Ceftriaxone Sodium 1 gm/ (Sodium Chloride) 100 mls @ 200 mls/hr IVPB DAILY [facility]; Protocol Morphine Sulfate (Morphine) 2 mg IVP Q4H PRN PRN Reason: Pain, moderate (4-7) Last Admin: 04/21/18 04:25 Dose: 2 mg Ondansetron HCl (Zofran Inj) 4 mg IVP Q6 PRN PRN Reason: Nausea/Vomiting Last Admin: 04/22/18 11:23 Dose: 4 mg - Labs Labs: 04/22/18 07:22 04/22/18 07:22 PT 14.6 SECONDS (9.7-12.2) H 04/21/18 09:59 INR 1.3 04/21/18 09:59 Attending/Attestation - Attestation I have personally seen and examined this patient.: Yes I have fully participated in the care of the patient.: Yes I have reviewed all pertinent clinical information, including history, physical exam and plan: Yes Notes (Text): Patient seen, examined, and case discussed with medical specialist. Patient reports overnight she had episode of vomitting but reports she drank too much water and gingerale. She reports she has not had a bowel movement for couple of days and feels backed up. She reports she spoke with the urologist over the phone and he is expected to come and see her today for possible disch arge. I did explained to her that her renal function has not improved yet where I can safely send her home yet. We will monitor intake and output, renal US, bladder scan, and see if any further recommendations by nephrology. We have changed Primaxin to Rocephin. Cultures remain negative, afebrile, and white count is downtrending. Assessment/Plan 1) Pyelonephritis/UTI/Hydronephrosis/ Renal Colic Assessment/Plan * Urology consulted, Dr. Jake Garcia on case * Patient underwent cystoscopy with placement of right ureteral stent on 04/21/18 * hx of recent right sided kidney stone Abd/Pelvic CT w/o: * Punctate calcification lower pole collecting system right kidney. The right kidney is enlarged and appears to be under tension with increased diameter and some effacement of the intramedullary fat. There are mild perinephric infiltration changes with small amount of perinephric fluid. Right renal pelvis and most of the right ureter is dilated at however the previously noted tiny 3 mm calcification within the right UVJ region is not definitively identified at this time. Rule out UTI/pyelonephritis. Urinary bladder wall thickened in part due to incomplete distention or cystitis must also be considered. Urine culture no growth Blood Cultures no growth at 48 hours (obtained after first dose of abx in ED) Medications: * Stopped Primaxin * Switched to Rocephin 1 gram IV q daily * Morphine 2mg IVP q4h prn * Zofran 4mg IVP q6h prn * NS @100mL/hr 2) Acute Kidney Injury Obstructive Uropathy Assessment/Plan * Monitor * s/p cystoscopy with placement of right ureteral stent on 04/21/18 * continue to monitor * order for renal US monitor hydropnephrosis * monitor intake and output * see plan above 3) Prophylactic Care * VTE - SCDs only, patient ambulates * GI - not indicated
[2018-04-22] MEDS ORDERED: Magnesium Citrate Oral SOL (300 ml) PO ONE (17:45)
--- NOTE | 2018-04-22 18:44 | CARD ---
APPROVED REPORT Date of service: 04/21/2018 EKG Measurement Heart [id number] [id number] <Conclusion> Sinus rhythm with premature atrial complexes Otherwise normal ECG
[2018-04-23] MEDS: HYDROmorphone 0.5 mg/0.5 ml ISec IVP PRN ×2 (00:50→04:56)
[2018-04-23] MEDS: Sodium Chloride 0.9% 1,000 ML IV SCH ×3 (00:50→13:51)
--- NOTE | 2018-04-23 05:30 | CON ---
DATE: 04/22/2018 NEPHROLOGY CONSULTATION HISTORY OF PRESENT ILLNESS: The patient is a 38-year-old female with a past medical history of nephrolithiasis with ER presentation last week for right-sided flank pain and found to have a 3-mm right UVJ region calculus; was discharged home on ibuprofen, Cipro, Flomax and oxycodone. The patient subsequently presented back to the ER two days ago due to worsening of her right flank pain. She subsequently underwent right ureteral stenting yesterday with improvement in symptoms. The patient reports continued nausea and vomiting x1 today but has otherwise been having good appetite, able to tolerate p.o. diet. The patient has been urinating well. Denies any fever or chills. Still with right flank pain that intermittently worsens. Has been getting p.r.n. of the morphine. PAST MEDICAL HISTORY: As above. SOCIAL HISTORY: Denies tobacco use. FAMILY HISTORY: Denies. REVIEW OF SYSTEMS: CONSTITUTIONAL: Denies fevers or chills. HEENT: Denies any difficulty swallowing. RESPIRATORY: Denies any difficulty breathing. CARDIOVASCULAR: Reports intermittent palpitations. No chest pain. GASTROINTESTINAL: As per HPI. GENITOURINARY: As per HPI. NEUROLOGIC: Reports intermittent dizziness. PHYSICAL EXAMINATION: VITAL SIGNS: This evening, blood pressure 146/90, heart rate 58, respirations are 20, temperature 98.4, O2 saturation 100% on room air. GENERAL: No distress. Conversing coherently in full sentences. HEENT: Moist mucous membranes. Nonicteric. No cervical lymphadenopathy. RESPIRATORY: Lungs are clear to auscultation bilaterally. No rales. No rhonchi. No wheezes. CARDIOVASCULAR: Heart sounds S1 and S2 normal. No murmurs. No gallops. No rubs. GASTROINTESTINAL: Abdomen is soft, nondistended. Right-sided tenderness. Right CVA tenderness. GENITOURINARY: No bladder distention. EXTREMITIES: Mild lower leg edema. SKIN: Warm. No cyanosis. PSYCHIATRIC: Normal mood. Normal affect. NEUROLOGIC: No asterixis. LABORATORY DATA: CBC: WBC 12.1, hemoglobin 9.8, hematocrit 29, platelets 205. Chemistry panel: Sodium 139; potassium 3.4; chloride 108; bicarb 15; BUN 47; creatinine 3.4, increased from 0.8 last week; glucose 87; calcium 8.2; phosphorus 4. AST 21, ALT 25, albumin 2.9. UA on presentation with numerous wbc's and rbc's. Renal ultrasound from this evening directly visualized showing somewhat increased echogenicity although does not appear more than adjacent organs. ASSESSMENT AND PLAN: 1. Acute renal failure, nonoliguric renal failure in the setting of likely pyelonephritis which would have to be bilateral in order to cause acute kidney injury. Unilateral obstructive nephropathy alone does not explain acute rise in serum creatinine. The patient may also have an element of acute tubular necrosis due to sepsis despite having had normal blood pressure. 2. Currently with increased anion gap metabolic acidosis and mild hypokalemia. 3. Serum creatinine slightly improved with intravenous fluids. 4. Agree with normal saline at 100 mL per hour in an attempt to expel any stones. 5. Recommend to continue antibiotics and repeat urine culture. 6. Avoid nephrotoxic agents (nonsteroidal anti-inflammatory drugs, Fleet enema). 7. Avoid giving magnesium citrate as this can cause magnesium toxicity in a patient with acute renal failure. 8. Changing intravenous morphine to intravenous Dilaudid 0.3 mg every 4 hours for severe pain (morphine metabolites accumulate in renal failure and should be avoided). Thank you for this referral. We will be following closely. Ramon Kirby MD
[2018-04-23 07:37] LABS: BASO % 0.4 % (0.0-2.0); EOS # 0.2 K/uL (0.0-0.7); EOS % 2.9 % (0.0-4.0); HEMOGLOBIN 9.2 g/dL (11.0-16.0); LYMPH # 1.4 K/uL (1.0-4.3); MEAN CELL VOLUME 83.9 fL (81.0-99.0); MEAN CORPUSCULAR HEMOGLOBIN 28.5 pg (27.0-31.0); MEAN PLATELET VOLUME 8.4 fL (7.2-11.7); MONO # 1.1 K/uL (0.0-0.8); MONO % 13.9 % (0.0-10.0); NEUT # 5.2 K/uL (1.8-7.0); NEUT % 65.8 % (50.0-75.0); NRBC % 0.1 % (0.0-2.0); RBC 3.24 Mil/uL (3.80-5.20); RED CELL DISTRIBUTION WIDTH 16.2 % (11.5-14.5)
[2018-04-23 07:40] LABS: CREATININE, RANDOM URINE 40.8 mg/dL
[2018-04-23 07:51] LABS: ALB/GLOB RATIO 0.9 (1.0-2.1); ALBUMIN 3.1 g/dL (3.5-5.0); CALCIUM 8.5 mg/dl (8.6-10.4)
[2018-04-23] MEDS ORDERED: Pneumococcal 23-Valent Vaccine IM ONE (10:00)
[2018-04-23] MEDS ORDERED: Sodium Chloride 0.45% 1,000 ML IV ONE (14:08)
--- NOTE | 2018-04-23 14:45 | CP.PCM.PN ---
<Dory Calvert - Last Filed: 04/23/18 14:42> Subjective - Date & Time of Evaluation Date of Evaluation: 04/23/18 Time of Evaluation: 08:00 - Subjective Subjective: Nephrology Progress Note for Dr. Kirby Patient was seen and examined at bedside in the AM. Patient states her pain has improved significantly. She states she was feeling constipated yesterday and she finally had 2 bowel movements this morning and states she feels so much better. She denies dysuria, hematuria, fever, chills, nausea or vomiting. Objective - Vital Signs/Intake and Output Vital Signs (last 24 hours): Temp Pulse Resp BP Pulse Ox 98.3 F 65 20 152/85 H 98 04/23/18 07:59 04/23/18 07:59 04/23/18 07:59 04/23/18 07:59 04/23/18 07:59 Intake and Output: 04/23/18 04/23/18 06:59 18:59 Intake Total 2200 1040 Balance 2200 1040 - Medications Medications: Current Medications Acetaminophen (Tylenol 325mg Tab) 650 mg PO Q6 PRN PRN Reason: Pain, moderate (4-7) Docusate Sodium (Colace) 100 mg PO BID NGOZI Last Admin: 04/23/18 09:05 Dose: 100 mg Hydromorphone HCl (Dilaudid) 0.3 mg IVP Q4H PRN PRN Reason: Pain, severe (8-10) Last Admin: 04/23/18 04:56 Dose: 0.3 mg Ceftriaxone Sodium 1 gm/ (Sodium Chloride) 100 mls @ 200 mls/hr IVPB DAILY [facility]; Protocol Last Admin: 04/23/18 09:58 Dose: 200 mls/hr Sodium Chloride (Sodium Chloride 0.45%) 1,000 mls @ 75 mls/hr IV .[id number] ONE Stop: 04/24/18 03:27 Last Admin: 04/23/18 14:25 Dose: 75 mls/hr Ondansetron HCl (Zofran Inj) 4 mg IVP Q6 PRN PRN Reason: Nausea/Vomiting Last Admin: 04/23/18 09:05 Dose: 4 mg - Labs Labs: 04/23/18 05:37 04/23/18 05:37 PT 14.6 SECONDS (9.7-12.2) H 04/21/18 09:59 INR 1.3 04/21/18 09:59 - Constitutional Appears: No Acute Distress - Head Exam Head Exam: ATRAUMATIC, NORMAL INSPECTION - Eye Exam Eye Exam: EOMI, Normal appearance - ENT Exam ENT Exam: Mucous Membranes Moist - Respiratory Exam Respiratory Exam: Clear to Ausculation Bilateral, NORMAL BREATHING PATTERN - Cardiovascular Exam Cardiovascular Exam: REGULAR RHYTHM, +S1, +S2 - GI/Abdominal Exam GI & Abdominal Exam: Soft, Normal Bowel Sounds. absent: Tenderness - Extremities Exam Extremities Exam: Pedal Edema - Back Exam Back Exam: absent: CVA tenderness (L), CVA tenderness (R) - Neurological Exam Neurological Exam: Alert, Awake, Oriented x3 Assessment and Plan - Assessment and Plan (Free Text) Assessment: 38 year old female with a past medical history of recently diagnosed kidney stone who presented to the ER with worsening right sided flank pain. Acute Kidney Injury - secondary to Pyelonephritis/Hydronephrosis - Leukocytosis, WBC 17.7 (was 7.3 on 04/18/18) * Neut 92.7%, Bands 3% - Cr 3.9 (was 0.8 on 04/18/18) - Started patient on 07/17 NS @75cc/hr - Continue to Monitor Pyelonephritis/Hydronephrosis Urology consulted, Dr. Garcia - History of recent right sided kidney stone - Abd/Pelvic CT w/o: * Punctate calcification lower pole collecting system right kidney. The right kidney is enlarged and appears to be under tension with increased diameter and some effacement of the intramedullary fat. There are mild perinephric infiltration changes with small amount of perinephric fluid. Right renal pelvis and most of the right ureter is dilated at however the previously noted tiny 3 mm calcification within the right UVJ region is not definitively identified at this time. Urinary bladder wall thickened in part due to incomplete distention or cystitis must also be considered. - Rocephin 1 g daily today - s/p right ureteral stent 04/22/[address] Kofi Calvert PGY-2 <Ramon Kirby - Last Filed: 04/24/18 05:59> Objective - Vital Signs/Intake and Output Vital Signs (last 24 hours): Temp Pulse Resp BP Pulse Ox 98.3 F 65 20 135/83 99 04/23/18 23:36 04/23/18 23:36 04/23/18 23:36 04/23/18 23:36 04/23/18 23:36 Intake and Output: 04/23/18 04/24/18 18:59 06:59 Intake Total 1815 Balance 1815 - Medications Medications: Current Medications Acetaminophen (Tylenol 325mg Tab) 650 mg PO Q6 PRN PRN Reason: Pain, moderate (4-7) Last Admin: 04/24/18 02:00 Dose: 650 mg Docusate Sodium (Colace) 100 mg PO BID NGOZI Last Admin: 04/23/18 17:21 Dose: 100 mg Hydromorphone HCl (Dilaudid) 0.3 mg IVP Q4H PRN PRN Reason: Pain, severe (8-10) Last Admin: 04/23/18 04:56 Dose: 0.3 mg Ceftriaxone Sodium 1 gm/ (Sodium Chloride) 100 mls @ 200 mls/hr IVPB DAILY [facility]; Protocol Last Admin: 04/23/18 09:58 Dose: 200 mls/hr Ondansetron HCl (Zofran Inj) 4 mg IVP Q6 PRN PRN Reason: Nausea/Vomiting Last Admin: 04/24/18 05:40 Dose: 4 mg Sennosides (Senokot Tab) 8.6 mg PO DAILY [facility] - Labs Labs: 04/23/18 05:37 04/23/18 05:37 PT 14.6 SECONDS (9.7-12.2) H 04/21/18 09:59 INR 1.3 04/21/18 09:59 Attending/Attestation - Attestation I have personally seen and examined this patient.: Yes I have fully participated in the care of the patient.: Yes I have reviewed all pertinent clinical information, including history, physical exam and plan: Yes Notes (Text): Patient seen and examined; I agree with the resident's note as above with the following additions/edits: 38 yo F admitted s/p R ureteral hydronephrosis requiring stent placement; nephrology following for SHERMAN; Likely some degree of ATN due to UTI sepsis; renal function improving; stable volume and electrolyte status; Negative urine culture but antibiotics may have been given before sample collected; procalcitonin level elevated; on ceftriaxone (no renal dose adjustment needed); awaiting repeat urine culture; -Changing IVF to 1/2NS at 75 cc/hr; -Avoid nephrotoxic agents (NSAIDS, etc);
--- NOTE | 2018-04-23 15:27 | CP.PCM.PN ---
<Mely Mayfield P - Last Filed: 04/23/18 19:30> Subjective - Date & Time of Evaluation Date of Evaluation: 04/23/18 Time of Evaluation: 08:00 - Subjective Subjective: PGY-[address] Reyes. Patient was seen and examined at bedside this AM. Patient was lying in bed comfortably in No acute distress. Pt states that she is feeling better today and admits to mild dizziness with associated N/V x2 which improved with Zofran. Pt admits to previous feelings of constipation which have improved since her bowel movement this AM. Pt denies abdominal/back pain, fever, chills, dysuria, urinary urgency, and urinary frequency. Objective - Vital Signs/Intake and Output Vital Signs (last 24 hours): Temp Pulse Resp BP Pulse Ox 98.3 F 65 20 152/85 H 98 04/23/18 07:59 04/23/18 07:59 04/23/18 07:59 04/23/18 07:59 04/23/18 07:59 Intake and Output: 04/23/18 04/23/18 06:59 18:59 Intake Total 2200 1815 Balance 2200 1815 - Medications Medications: Current Medications Acetaminophen (Tylenol 325mg Tab) 650 mg PO Q6 PRN PRN Reason: Pain, moderate (4-7) Docusate Sodium (Colace) 100 mg PO BID [facility]I Last Admin: 04/23/18 09:05 Dose: 100 mg Hydromorphone HCl (Dilaudid) 0.3 mg IVP Q4H PRN PRN Reason: Pain, severe (8-10) Last Admin: 04/23/18 04:56 Dose: 0.3 mg Ceftriaxone Sodium 1 gm/ (Sodium Chloride) 100 mls @ 200 mls/hr IVPB DAILY [facility]; Protocol Last Admin: 04/23/18 09:58 Dose: 200 mls/hr Sodium Chloride (Sodium Chloride 0.45%) 1,000 mls @ 75 mls/hr IV .[id number] ONE Stop: 04/24/18 03:27 Last Admin: 04/23/18 14:25 Dose: 75 mls/hr Ondansetron HCl (Zofran Inj) 4 mg IVP Q6 PRN PRN Reason: Nausea/Vomiting Last Admin: 10/09/18 09:05 Dose: 4 mg - Labs Labs: 04/23/18 05:37 04/23/18 05:37 PT 14.6 SECONDS (9.7-12.2) H 04/21/18 09:59 INR 1.3 04/21/18 09:59 - Constitutional Appears: Non-toxic, No Acute Distress - Head Exam Head Exam: ATRAUMATIC, NORMOCEPHALIC - Eye Exam Eye Exam: EOMI, PERRL - ENT Exam ENT Exam: Mucous Membranes Moist - Neck Exam Neck Exam: Full ROM - Respiratory Exam Respiratory Exam: Clear to Ausculation Bilateral. absent: Rales, Rhonchi, Wheezes - Cardiovascular Exam Cardiovascular Exam: REGULAR RHYTHM, +S1, +S2 - GI/Abdominal Exam GI & Abdominal Exam: Soft, Normal Bowel Sounds. absent: Guarding, Tenderness, Rebound - Extremities Exam Extremities Exam: Full ROM, Normal Inspection. absent: Pedal Edema, Tenderness - Neurological Exam Neurological Exam: Alert, Awake, Oriented x3 - Psychiatric Exam Psychiatric exam: Normal Affect, Normal Mood - Skin Skin Exam: Dry, Normal Color, Warm Assessment and Plan - Assessment and Plan (Free Text) Plan: Patient is a 38 year old female with PMHx of kidney stones who presented to the ED c/o right flank pain radiating to the right groin. Patient was admitted for pyelonephritis/UTI and SHERMAN. Pyelonephritis/UTI/Hydronephrosis Hx of recent right sided kidney stone Abd/Pelvic CT w/o: Punctate calcification lower pole collecting system right kidney. The right kidney is enlarged and appears to be under tension with increased diameter and some effacement of the intramedullary fat. There are mild perinephric infiltration changes with small amount of perinephric fluid. Right renal pelvis and most of the right ureter is dilated at however the previously noted tiny 3 mm calcification within the right UVJ region is not definitively identified at this time. Rule out UTI/pyelonephritis. Urinary bladder wall thickened in part due to incomplete distention or cystitis must also be considered. Afebrile, vitals stable UA: color Red, protein 2+, Blood 3+, Leuk Est 3+, WBC 3560, RBC 4133 (patient stated she is menstrating) Urine culture (04/20) no growth Blood Cultures (04/20) neg x 24 hrs Medications: Primaxin 500mg IVPB q6h (started on 04/20; d/c'd); started Rocephin 1 g daily 04/22/18 Dilaudid 0.3mg Q4H PRN Zofran 4mg IVP q6h prn 1/2 NS@75cc/hr Received one dose of Cipro IV and Rocephin IV while in ED. Urology consulted, Dr. Garcia Patient underwent cystoscopy with placement of right ureteral stent 04/21/18 F/u further uro recs Acute Kidney Injury Cr 2.9 today from 3.4 yesterday (was 0.8 on 04/18/18) Continue to monitor Nephro consulted (Dr. Kirby), recs appreciated repeat renal US: Bilateral echogenic renal avoid nephrotoxic agents f/u repeat urine cx Constipation - added colace 100 mg bid, pt has not had BM since before procedure, continue to monitor Prophylactic Care VTE - SCDs only, patient ambulates GI - not indicated <Torrie Reyes V - Last Filed: 04/24/18 22:54> Objective - Vital Signs/Intake and Output Vital Signs (last 24 hours): Temp Pulse Resp BP Pulse Ox 98.9 F 61 20 163/89 H 99 04/24/18 16:23 04/24/18 16:23 04/24/18 16:23 04/24/18 16:23 04/24/18 16:23 Intake and Output: 04/24/18 04/25/18 18:59 06:59 Intake Total 1105 Balance 1105 - Medications Medications: Current Medications Acetaminophen (Tylenol 325mg Tab) 650 mg PO Q6 PRN PRN Reason: Pain, moderate (4-7) Last Admin: 04/24/18 17:19 Dose: 650 mg Docusate Sodium (Colace) 100 mg PO BID [facility] Last Admin: 04/24/18 17:20 Dose: 100 mg Hydromorphone HCl (Dilaudid) 0.3 mg IVP Q4H PRN PRN Reason: Pain, severe (8-10) Last Admin: 04/23/18 04:56 Dose: 0.3 mg Ceftriaxone Sodium 1 gm/ (Sodium Chloride) 100 mls @ 200 mls/hr IVPB DAILY [facility]; Protocol Last Admin: 04/24/18 10:11 Dose: 200 mls/hr Sodium Chloride (Sodium Chloride 0.45%) 1,000 mls @ 75 mls/hr IV .[id number] [facility] Last Admin: 04/24/18 19:30 Dose: 75 mls/hr Ondansetron HCl (Zofran Inj) 4 mg IVP Q6 PRN PRN Reason: Nausea/Vomiting Last Admin: 04/24/18 05:40 Dose: 4 mg Saccharomyces Boulardii (Florastor) 250 mg PO BID [facility] Last Admin: 04/24/18 17:28 Dose: 250 mg Sennosides (Senokot Tab) 8.6 mg PO DAILY [facility] Last Admin: 04/24/18 10:12 Dose: 8.6 mg - Labs Labs: 04/24/18 08:29 04/24/18 08:29 PT 14.6 SECONDS (9.7-12.2) H 04/21/18 09:59 INR 1.3 04/21/18 09:59 Attending/Attestation - Attestation I have personally seen and examined this patient.: Yes I have fully participated in the care of the patient.: Yes I have reviewed all pertinent clinical information, including history, physical exam and plan: Yes Notes (Text): This is a late computer entry for 04/04/2018. Patient seen, examined, case discussed with medical office technician. Patient's creatinine slowly improving. Will continue IV fluids. We'll seek nephrology consult as well. We'll continue IV antibiotic to cover for urinary tract infection in light of recent procedure. Patient has not had bowel movement post procedure will start Colace.
[2018-04-24] MEDS: Sodium Chloride 0.45% 1,000 ML IV SCH ×2 (06:00→19:30)
[2018-04-24 08:40] LABS: BASO % 0.3 % (0.0-2.0); EOS # 0.2 K/uL (0.0-0.7); EOS % 2.9 % (0.0-4.0); HEMOGLOBIN 9.7 g/dL (11.0-16.0); LYMPH # 1.2 K/uL (1.0-4.3); LYMPH % 15.3 % (20.0-40.0); MEAN CELL VOLUME 83.7 fL (81.0-99.0); MEAN CORPUSCULAR HEMOGLOBIN 27.8 pg (27.0-31.0); MEAN CORPUSCULAR HGB CONC 33.2 g/dL (33.0-37.0); MEAN PLATELET VOLUME 8.3 fL (7.2-11.7); NEUT # 5.2 K/uL (1.8-7.0); NEUT % 68.5 % (50.0-75.0); RBC 3.49 Mil/uL (3.80-5.20); WHITE BLOOD COUNT 7.5 K/uL (4.8-10.8)
[2018-04-24 08:59] LABS: ALB/GLOB RATIO 0.9 (1.0-2.1); ALBUMIN 2.9 g/dL (3.5-5.0); CALCIUM 7.5 mg/dl (8.6-10.4)
--- NOTE | 2018-04-24 09:44 | CP.PCM.PN ---
<Carlton Wolf - Last Filed: 04/24/18 15:05> Subjective - Date & Time of Evaluation Date of Evaluation: 04/24/18 Time of Evaluation: 07:10 - Subjective Subjective: Nephrology progress note for Dr Kirby: Pt seen and examined at bedside. No acute events overnight. Patient has no complaints at this time. Denies any pain. Denies any celis, dizziness, fever, chills, sob, cp, abd pain, n/v/d. 12 Point ROS performed and neg other than stated above. Objective - Vital Signs/Intake and Output Vital Signs (last 24 hours): Temp Pulse Resp BP Pulse Ox 98.4 F 63 20 151/81 H 98 04/24/18 07:51 04/24/18 07:51 04/24/18 07:51 04/24/18 07:51 04/24/18 07:51 Intake and Output: 04/24/18 04/24/18 06:59 18:59 Intake Total 1000 Balance 1000 - Medications Medications: Current Medications Acetaminophen (Tylenol 325mg Tab) 650 mg PO Q6 PRN PRN Reason: Pain, moderate (4-7) Last Admin: 04/24/18 08:09 Dose: 650 mg Docusate Sodium (Colace) 100 mg PO BID [facility] Last Admin: 04/23/18 17:21 Dose: 100 mg Hydromorphone HCl (Dilaudid) 0.3 mg IVP Q4H PRN PRN Reason: Pain, severe (8-10) Last Admin: 04/23/18 04:56 Dose: 0.3 mg Ceftriaxone Sodium 1 gm/ (Sodium Chloride) 100 mls @ 200 mls/hr IVPB DAILY [facility]; Protocol Last Admin: 04/23/18 09:58 Dose: 200 mls/hr Sodium Chloride (Sodium Chloride 0.45%) 1,000 mls @ 75 mls/hr IV .[id number] [facility] Last Admin: 04/24/18 06:00 Dose: 75 mls/hr Ondansetron HCl (Zofran Inj) 4 mg IVP Q6 PRN PRN Reason: Nausea/Vomiting Last Admin: 04/24/18 05:40 Dose: 4 mg Sennosides (Senokot Tab) 8.6 mg PO DAILY [facility] - Labs Labs: 04/24/18 08:29 04/24/18 08:29 PT 14.6 SECONDS (9.7-12.2) H 04/21/18 09:59 INR 1.3 04/21/18 09:59 - Constitutional Appears: No Acute Distress - Head Exam Head Exam: ATRAUMATIC, NORMOCEPHALIC - Eye Exam Eye Exam: EOMI - ENT Exam ENT Exam: Mucous Membranes Moist - Respiratory Exam Respiratory Exam: Clear to Ausculation Bilateral. absent: Rales, Wheezes - Cardiovascular Exam Cardiovascular Exam: REGULAR RHYTHM, +S1, +S2 - GI/Abdominal Exam GI & Abdominal Exam: Soft. absent: Distended, Tenderness - Extremities Exam Extremities Exam: absent: Calf Tenderness - Back Exam Back Exam: absent: CVA tenderness (L), CVA tenderness (R) - Neurological Exam Neurological Exam: Alert, Awake, CN II-XII Intact Assessment and Plan - Assessment and Plan (Free Text) Assessment: 38 yo F admitted s/p R ureteral hydronephrosis requiring stent placement. Nephrology consulted for SHERMAN consistant with likely some degree of ATN due to UTI sepsis; -Renal function improving - stable volume and electrolyte status -Stone risk assessment - 24 hr urine - Negative urine culture but antibiotics may have been given before sample col lected; procalcitonin level elevated -Cont ceftriaxone (no renal dose adjustment needed); f/u repeat urine culture -Cont 1/2NS at 75 cc/hr; -Avoid nephrotoxic agents (NSAIDS, etc); Case and plan was reviewed and discussed in detail with Dr Kirby. <Ramon Kirby - Last Filed: 04/25/18 06:06> Objective - Vital Signs/Intake and Output Vital Signs (last 24 hours): Temp Pulse Resp BP Pulse Ox 98.9 F 75 20 144/75 98 04/25/18 00:00 04/25/18 00:00 04/25/18 00:00 04/25/18 00:00 04/25/18 00:00 Intake and Output: 04/24/18 04/25/18 18:59 06:59 Intake Total 1105 900 Balance 1105 900 - Medications Medications: Current Medications Acetaminophen (Tylenol 325mg Tab) 650 mg PO Q6 PRN PRN Reason: Pain, moderate (4-7) Last Admin: 04/24/18 17:19 Dose: 650 mg Docusate Sodium (Colace) 100 mg PO BID [facility] Last Admin: 04/24/18 17:20 Dose: 100 mg Hydromorphone HCl (Dilaudid) 0.3 mg IVP Q4H PRN PRN Reason: Pain, severe (8-10) Last Admin: 04/25/18 00:12 Dose: 0.3 mg Ceftriaxone Sodium 1 gm/ (Sodium Chloride) 100 mls @ 200 mls/hr IVPB DAILY [facility]; Protocol Last Admin: 04/24/18 10:11 Dose: 200 mls/hr Sodium Chloride (Sodium Chloride 0.45%) 1,000 mls @ 75 mls/hr IV .[id number] [facility] Last Admin: 04/24/18 19:30 Dose: 75 mls/hr Ondansetron HCl (Zofran Inj) 4 mg IVP Q6 PRN PRN Reason: Nausea/Vomiting Last Admin: 04/25/18 00:11 Dose: 4 mg Saccharomyces Boulardii (Florastor) 250 mg PO BID [facility] Last Admin: 04/24/18 17:28 Dose: 250 mg Sennosides (Senokot Tab) 8.6 mg PO DAILY [facility] Last Admin: 04/24/18 10:12 Dose: 8.6 mg - Labs Labs: 04/24/18 08:29 04/24/18 08:29 PT 14.6 SECONDS (9.7-12.2) H 04/21/18 09:59 INR 1.3 04/21/18 09:59 Attending/Attestation - Attestation I have personally seen and examined this patient.: Yes I have fully participated in the care of the patient.: Yes I have reviewed all pertinent clinical information, including history, physical exam and plan: Yes Notes (Text): Patient seen and examined; I agree with the resident's note as above with the following additions/edits: Patient with no significant pmh admitted with R hydroureter, pyelonephritis and SHERMAN related to first time kidney stone occurrence, ureteral stent placed with resolution of symptoms; SHERMAN, consistent with ATN, resolving; non-oliguric renal failure; IVF decreased yesterday; Concern for need for longer duration of antibiotics given presence of ureteral stent; initial urine culture collected after antibiotics given and is negative; repeat urine culture sent; given the fact that patient has done well with ceftriaxone alone, we can continue PO cefpodoxime to complete 2 weeks at home; -Will collect 24 hr urine for stone risk assessment; -Continue 1/2NS at 75 cc/hr; -Avoid nephrotoxic agents;
[2018-04-24] MEDS ORDERED: Potassium Chloride 20 mEq/15 ml LIQ UD PO ONE (09:56)
[2018-04-24] MEDS: Saccharomyces Boulardi 250 mg Cap PO SCH ×2 (11:55→17:28)
--- NOTE | 2018-04-24 16:10 | CP.PCM.PN ---
<Rick Sparrow - Last Filed: 04/24/18 16:06> Subjective - Date & Time of Evaluation Date of Evaluation: 04/24/18 Time of Evaluation: 09:10 - Subjective Subjective: Medicine Progress Note for Hospitalist Service Pt seen and examined at bedside this am. Denies any acute complaints. Reports she did vomit once last night after drinking water again, but states that Zofran is helping with her nausea/vomiting. Reports increased urinary frequency every 10-15 mins. Denies fever, chills, headache, dizziness, chest pain, sob, n/v/d/c, abd pain, or other symptoms. Objective - Vital Signs/Intake and Output Vital Signs (last 24 hours): Temp Pulse Resp BP Pulse Ox 98.4 F 63 20 151/81 H 98 04/24/18 07:51 04/24/18 07:51 04/24/18 07:51 04/24/18 07:51 04/24/18 07:51 Intake and Output: 04/24/18 04/24/18 06:59 18:59 Intake Total 1000 1105 Balance 1000 1105 - Medications Medications: Current Medications Acetaminophen (Tylenol 325mg Tab) 650 mg PO Q6 PRN PRN Reason: Pain, moderate (4-7) Last Admin: 04/24/18 08:09 Dose: 650 mg Docusate Sodium (Colace) 100 mg PO BID [facility] Last Admin: 04/24/18 10:12 Dose: 100 mg Hydromorphone HCl (Dilaudid) 0.3 mg IVP Q4H PRN PRN Reason: Pain, severe (8-10) Last Admin: 04/23/18 04:56 Dose: 0.3 mg Ceftriaxone Sodium 1 gm/ (Sodium Chloride) 100 mls @ 200 mls/hr IVPB DAILY [facility]; Protocol Last Admin: 04/24/18 10:11 Dose: 200 mls/hr Sodium Chloride (Sodium Chloride 0.45%) 1,000 mls @ 75 mls/hr IV .[id number] [facility] Last Admin: 04/24/18 06:00 Dose: 75 mls/hr Ondansetron HCl (Zofran Inj) 4 mg IVP Q6 PRN PRN Reason: Nausea/Vomiting Last Admin: 04/24/18 05:40 Dose: 4 mg Saccharomyces Boulardii (Florastor) 250 mg PO BID [facility] Last Admin: 04/24/18 11:55 Dose: 250 mg Sennosides (Senokot Tab) 8.6 mg PO DAILY [facility] Last Admin: 04/24/18 10:12 Dose: 8.6 mg - Labs Labs: 04/24/18 08:29 04/24/18 08:29 PT 14.6 SECONDS (9.7-12.2) H 04/21/18 09:59 INR 1.3 04/21/18 09:59 - Constitutional Appears: Non-toxic, No Acute Distress - Head Exam Head Exam: ATRAUMATIC, NORMOCEPHALIC - Eye Exam Eye Exam: EOMI, Normal appearance, PERRL - ENT Exam ENT Exam: Mucous Membranes Moist - Respiratory Exam Respiratory Exam: Clear to Ausculation Bilateral, NORMAL BREATHING PATTERN. absent: Rales, Rhonchi, Wheezes - Cardiovascular Exam Cardiovascular Exam: REGULAR RHYTHM, +S1, +S2. absent: Gallop, Rubs, Murmur - GI/Abdominal Exam GI & Abdominal Exam: Soft, Normal Bowel Sounds. absent: Distended, Firm, Guarding, Tenderness, Organomegaly - Extremities Exam Extremities Exam: Full ROM, Normal Capillary Refill, Normal Inspection, Pedal Edema. absent: Calf Tenderness - Neurological Exam Neurological Exam: Alert, Awake, CN II-XII Intact, Normal Gait, Oriented x3 - Psychiatric Exam Psychiatric exam: Normal Affect, Normal Mood - Skin Skin Exam: Dry, Intact, Normal Color, Warm Assessment and Plan - Assessment and Plan (Free Text) Assessment: 38 year old female with PMHx of kidney stones who presented to the ED c/o right flank pain radiating to the right groin. Patient was admitted for pyelonephritis/UTI and SHERMAN. Plan: Pyelonephritis/UTI/Hydronephrosis Hx of recent right sided kidney stone Abd/Pelvic CT w/o: Punctate calcification lower pole collecting system right kidney. The right kidney is enlarged and appears to be under tension with increased diameter and some effacement of the intramedullary fat. There are mild perinephric infiltration changes with small amount of perinephric fluid. Right renal pelvis and most of the right ureter is dilated at however the previously noted tiny 3 mm calcification within the right UVJ region is not definitively id entified at this time. Rule out UTI/pyelonephritis. Urinary bladder wall thickened in part due to incomplete distention or cystitis must also be considered. Afebrile, vitals stable UA: color Red, protein 2+, Blood 3+, Leuk Est 3+, WBC 3560, RBC 4133 (patient stated she is menstrating) Urine culture (04/20) no growth Blood Cultures (04/20) neg x 3 days Medications: Primaxin 500mg IVPB q6h (started on 04/20; d/c'd); started Rocephin 1 g daily 04/22/18 Dilaudid 0.3mg Q4H PRN Zofran 4mg IVP q6h prn / NS@75cc/hr Received one dose of Cipro IV and Rocephin IV while in ED. Urology consulted, Dr. Garcia Patient underwent cystoscopy with placement of right ureteral stent 04/21/18 F/u further uro recs Procalcitonin elevated at 1.4, repeat level pending Acute Kidney Injury Cr 2.9 today from 3.4 yesterday (was 0.8 on 04/18/18) Continue to monitor Nephro consulted (Dr. Kirby), recs appreciated repeat renal US: Bilateral echogenic renal avoid nephrotoxic agents f/u repeat urine cx Constipation - colace 100 mg bid; Miralax started today, continue to monitor Prophylactic Care VTE - SCDs only, patient ambulates GI - not indicated Pt seen, examined with, and plan d/w Dr. Reyes, attending physician. Rick Sparrow DO PGY-1, [employer] Pager #[phone] <Torrie Reyes V - Last Filed: 04/24/18 22:56> Objective - Vital Signs/Intake and Output Vital Signs (last 24 hours): Temp Pulse Resp BP Pulse Ox 98.9 F 61 20 163/89 H 99 04/24/18 16:23 04/24/18 16:23 04/24/18 16:23 04/24/18 16:23 04/24/18 16:23 Intake and Output: 04/24/18 04/25/18 18:59 06:59 Intake Total 1105 Balance 1105 - Medications Medications: Current Medications Acetaminophen (Tylenol 325mg Tab) 650 mg PO Q6 PRN PRN Reason: Pain, moderate (4-7) Last Admin: 10/10/18 17:19 Dose: 650 mg Docusate Sodium (Colace) 100 mg PO BID [facility] Last Admin: 04/24/18 17:20 Dose: 100 mg Hydromorphone HCl (Dilaudid) 0.3 mg IVP Q4H PRN PRN Reason: Pain, severe (8-10) Last Admin: 04/23/18 04:56 Dose: 0.3 mg Ceftriaxone Sodium 1 gm/ (Sodium Chloride) 100 mls @ 200 mls/hr IVPB DAILY [facility]; Protocol Last Admin: 04/24/18 10:11 Dose: 200 mls/hr Sodium Chloride (Sodium Chloride 0.45%) 1,000 mls @ 75 mls/hr IV .[id number] [facility] Last Admin: 04/24/18 19:30 Dose: 75 mls/hr Ondansetron HCl (Zofran Inj) 4 mg IVP Q6 PRN PRN Reason: Nausea/Vomiting Last Admin: 04/24/18 05:40 Dose: 4 mg Saccharomyces Boulardii (Florastor) 250 mg PO BID [facility] Last Admin: 04/24/18 17:28 Dose: 250 mg Sennosides (Senokot Tab) 8.6 mg PO DAILY [facility] Last Admin: 04/24/18 10:12 Dose: 8.6 mg - Labs Labs: 04/24/18 08:29 04/24/18 08:29 PT 14.6 SECONDS (9.7-12.2) H 04/21/18 09:59 INR 1.3 04/21/18 09:59 Attending/Attestation - Attestation I have personally seen and examined this patient.: Yes I have fully participated in the care of the patient.: Yes I have reviewed all pertinent clinical information, including history, physical exam and plan: Yes Notes (Text): Patient seen, examined, case discussed with medical technologist chief. Patient fluid changed per nephrology. Creatinine slowly improving. No patient baseline is 0.8 Patient still reports that her bowel movement is better with stool softeners We will continue IV antibiotic to cover for urinary tract infection as well as post procedure status post lithotripsy with renal stent placement. Awaiting official operative report. Patient's cultures are negative however patient did receive antibiotic prior to cultures. Nephrology also has also order for stone assessment. We'll procalcitonin is elevated can also PhosLo be elevated in kidney disease will repeat pro calcitonin tomorrow
[2018-04-25] MEDS: HYDROmorphone 0.5 mg/0.5 ml ISec IVP PRN ×2 (00:12→22:45)
[2018-04-25] MEDS: Sodium Chloride 0.45% 1,000 ML IV SCH ×3 (06:51→23:54)
[2018-04-25 07:16] LABS: BASO # 0.1 K/uL (0.0-0.2); BASO % 0.6 % (0.0-2.0); EOS # 0.2 K/uL (0.0-0.7); EOS % 1.9 % (0.0-4.0); HEMOGLOBIN 9.7 g/dL (11.0-16.0); LYMPH # 1.2 K/uL (1.0-4.3); LYMPH % 12.3 % (20.0-40.0); MEAN CELL VOLUME 83.5 fL (81.0-99.0); MEAN CORPUSCULAR HEMOGLOBIN 28.2 pg (27.0-31.0); MEAN CORPUSCULAR HGB CONC 33.8 g/dL (33.0-37.0); MEAN PLATELET VOLUME 7.6 fL (7.2-11.7); MONO # 0.9 K/uL (0.0-0.8); MONO % 9.6 % (0.0-10.0); NEUT # 7.1 K/uL (1.8-7.0); NEUT % 75.6 % (50.0-75.0); RBC 3.44 Mil/uL (3.80-5.20); RED CELL DISTRIBUTION WIDTH 16.4 % (11.5-14.5); WHITE BLOOD COUNT 9.3 K/uL (4.8-10.8)
[2018-04-25 07:43] LABS: ALB/GLOB RATIO 0.9 (1.0-2.1); ALBUMIN 2.9 g/dL (3.5-5.0); CALCIUM 8.2 mg/dl (8.6-10.4)
[2018-04-25] MEDS: Saccharomyces Boulardi 250 mg Cap PO SCH ×2 (09:19→17:20)
[2018-04-25] MEDS ORDERED: Potassium Chloride 20 mEq ER Tab PO SCH (10:00)
--- NOTE | 2018-04-25 10:20 | CP.PCM.PN ---
Subjective - Date & Time of Evaluation Date of Evaluation: 04/25/18 Time of Evaluation: 10:19 - Subjective Subjective: PGY-1 Medicine Progress Note for Dr. Rodriguez Patient seen and examined at bedside this AM. Objective - Vital Signs/Intake and Output Vital Signs (last 24 hours): Temp Pulse Resp BP Pulse Ox 98.6 F 77 20 137/80 99 04/25/18 08:00 04/25/18 08:00 04/25/18 08:00 04/25/18 08:00 04/25/18 08:00 Intake and Output: 04/25/18 04/25/18 06:59 18:59 Intake Total 1680 Balance 1680 - Medications Medications: Current Medications Acetaminophen (Tylenol 325mg Tab) 650 mg PO Q6 PRN PRN Reason: Pain, moderate (4-7) Last Admin: 04/24/18 17:19 Dose: 650 mg Docusate Sodium (Colace) 100 mg PO BID [facility] Last Admin: 04/25/18 09:19 Dose: 100 mg Hydromorphone HCl (Dilaudid) 0.3 mg IVP Q4H PRN PRN Reason: Pain, severe (8-10) Last Admin: 04/25/18 00:12 Dose: 0.3 mg Ceftriaxone Sodium 1 gm/ (Sodium Chloride) 100 mls @ 200 mls/hr IVPB DAILY [facility]; Protocol Last Admin: 04/25/18 09:19 Dose: 200 mls/hr Sodium Chloride (Sodium Chloride 0.45%) 1,000 mls @ 75 mls/hr IV .[id number] [facility] Last Admin: 04/25/18 09:14 Dose: Not Given Ondansetron HCl (Zofran Inj) 4 mg IVP Q6 PRN PRN Reason: Nausea/Vomiting Last Admin: 04/25/18 00:11 Dose: 4 mg Potassium Chloride (K-Dur 20 Meq Er Tab) 40 meq PO DAILY [facility] Last Admin: 04/25/18 09:19 Dose: 40 meq Saccharomyces Boulardii (Florastor) 250 mg PO BID [facility] Last Admin: 04/25/18 09:19 Dose: 250 mg Sennosides (Senokot Tab) 8.6 mg PO DAILY [facility] Last Admin: 04/24/18 10:12 Dose: 8.6 mg - Labs Labs: 04/25/18 07:09 04/25/18 07:09 PT 14.6 SECONDS (9.7-12.2) H 04/21/18 09:59 INR 1.3 04/21/18 09:59
[2018-04-25] MEDS ORDERED: Potassium Chloride 20 mEq ER Tab PO ONE (10:25)
--- NOTE | 2018-04-25 11:37 | CP.PCM.PN ---
<Carlton Wolf - Last Filed: 04/25/18 14:03> Subjective - Date & Time of Evaluation Date of Evaluation: 04/25/18 Time of Evaluation: 09:00 - Subjective Subjective: Nephrology progress note for Dr Kirby: Pt seen and examined at bedside. No acute events overnight. Denies any pain. Denies any celis, dizziness, fever, chills, sob, cp, abd pain, n/v/d. 12 Point ROS performed and neg other than stated above. Objective - Vital Signs/Intake and Output Vital Signs (last 24 hours): Temp Pulse Resp BP Pulse Ox 98.6 F 77 20 137/80 99 04/25/18 08:00 04/25/18 08:00 04/25/18 08:00 04/25/18 08:00 04/25/18 08:00 Intake and Output: 04/25/18 04/25/18 06:59 18:59 Intake Total 1680 Balance 1680 - Medications Medications: Current Medications Acetaminophen (Tylenol 325mg Tab) 650 mg PO Q6 PRN PRN Reason: Pain, moderate (4-7) Last Admin: 04/24/18 17:19 Dose: 650 mg Docusate Sodium (Colace) 100 mg PO BID [facility] Last Admin: 04/25/18 09:19 Dose: 100 mg Hydromorphone HCl (Dilaudid) 0.3 mg IVP Q4H PRN PRN Reason: Pain, severe (8-10) Last Admin: 04/25/18 00:12 Dose: 0.3 mg Ceftriaxone Sodium 1 gm/ (Sodium Chloride) 100 mls @ 200 mls/hr IVPB DAILY [facility]; Protocol Last Admin: 04/25/18 09:19 Dose: 200 mls/hr Sodium Chloride (Sodium Chloride 0.45%) 1,000 mls @ 75 mls/hr IV .[id number] [facility] Last Admin: 04/25/18 09:14 Dose: Not Given Ondansetron HCl (Zofran Inj) 4 mg IVP Q6 PRN PRN Reason: Nausea/Vomiting Last Admin: 04/25/18 00:11 Dose: 4 mg Saccharomyces Boulardii (Florastor) 250 mg PO BID [facility] Last Admin: 04/25/18 09:19 Dose: 250 mg Sennosides (Senokot Tab) 8.6 mg PO DAILY [facility] Last Admin: 04/25/18 10:27 Dose: Not Given - Labs Labs: 04/25/18 07:09 04/25/18 07:09 PT 14.6 SECONDS (9.7-12.2) H 04/21/18 09:59 INR 1.3 04/21/18 09:59 - Constitutional Appears: No Acute Distress - Head Exam Head Exam: ATRAUMATIC, NORMOCEPHALIC - Eye Exam Eye Exam: EOMI - ENT Exam ENT Exam: Mucous Membranes Moist - Respiratory Exam Respiratory Exam: Clear to Ausculation Bilateral. absent: Rales, Wheezes - Cardiovascular Exam Cardiovascular Exam: REGULAR RHYTHM, +S1, +S2 - GI/Abdominal Exam GI & Abdominal Exam: Soft. absent: Distended, Tenderness - Neurological Exam Neurological Exam: Alert, Awake, CN II-XII Intact - Psychiatric Exam Psychiatric exam: Normal Mood - Skin Skin Exam: Dry, Intact Assessment and Plan - Assessment and Plan (Free Text) Assessment: 38 yo F admitted with R hydroureter, pyelonephritis and SHERMAN s/p stent placement. Nephrology consulted for SHERMAN consistent with likely some degree of ATN now resolving. -Renal function improving - stable volume and electrolyte status -Stone risk assessment - collect 24 hr urine -Negative urine culture but antibiotics may have been given before sample collected; procalcitonin level elevated -Cont ceftriaxone (no renal dose adjustment needed); f/u repeat urine culture -Cont 1/2NS at 75 cc/hr; -Avoid nephrotoxic agents (NSAIDS, etc) -Concern for need for longer duration of antibiotics given presence of ureteral stent; repeat urine culture sent; given the fact that patient has done well wit h ceftriaxone, we can continue PO cefpodoxime to complete 2 weeks at home Case and plan was reviewed and discussed in detail with Dr Kirby. <Ramon Kirby - Last Filed: 04/26/18 06:21> Objective - Vital Signs/Intake and Output Vital Signs (last 24 hours): Temp Pulse Resp BP Pulse Ox 98.6 F 68 20 150/78 97 04/26/18 00:00 04/26/18 00:00 04/26/18 00:00 04/26/18 00:00 04/26/18 00:00 Intake and Output: 04/25/18 04/26/18 18:59 06:59 Intake Total 600 900 Balance 600 900 - Medications Medications: Current Medications Acetaminophen (Tylenol 325mg Tab) 650 mg PO Q6 PRN PRN Reason: Pain, moderate (4-7) Last Admin: 04/25/18 19:09 Dose: 650 mg Docusate Sodium (Colace) 100 mg PO BID [facility] Last Admin: 04/25/18 17:20 Dose: 100 mg Hydromorphone HCl (Dilaudid) 0.3 mg IVP Q4H PRN PRN Reason: Pain, severe (8-10) Last Admin: 04/25/18 22:45 Dose: 0.3 mg Ceftriaxone Sodium 1 gm/ (Sodium Chloride) 100 mls @ 200 mls/hr IVPB DAILY [facility]; Protocol Last Admin: 04/25/18 09:19 Dose: 200 mls/hr Sodium Chloride (Sodium Chloride 0.45%) 1,000 mls @ 75 mls/hr IV .[id number] [facility] Last Admin: 04/26/18 00:11 Dose: 75 mls/hr Ondansetron HCl (Zofran Inj) 4 mg IVP Q6 PRN PRN Reason: Nausea/Vomiting Last Admin: 04/25/18 21:03 Dose: 4 mg Saccharomyces Boulardii (Florastor) 250 mg PO BID [facility] Last Admin: 04/25/18 17:20 Dose: 250 mg Sennosides (Senokot Tab) 8.6 mg PO DAILY [facility] Last Admin: 04/25/18 10:27 Dose: Not Given - Labs Labs: 04/25/18 07:09 04/25/18 07:09 PT 14.6 SECONDS (9.7-12.2) H 04/21/18 09:59 INR 1.3 04/21/18 09:59 Attending/Attestation - Attestation I have personally seen and examined this patient.: Yes I have fully participated in the care of the patient.: Yes I have reviewed all pertinent clinical information, including history, physical exam and plan: Yes Notes (Text): Patient seen and examined; I agree with the resident's note as above with the following additions/edits: Patient with no significant pmh admitted with R hydroureter, pyelonephritis and SHERMAN related to first time kidney stone occurrence, ureteral stent placed with resolution of symptoms; SHERMAN, consistent with ATN, had started to resolve but serum creatinine now at plateau; non-oliguric renal failure; stable volume and electrolyte status; renal function should improve over time; I/O not being accurately documented; currently on 1/2NS at 75 cc/hr, no need to increase rate unless patient is polyu alek; UTI sepsis responding to ceftriaxone; should continue PO cefpodoxime at home to complete 2 weeks (due to presence of ureteral stent); Obtaining 24 hr urine for stone risk assessment (started this morning);
--- NOTE | 2018-04-25 11:52 | CP.PCM.PN ---
<Alexander Marrero - Last Filed: 04/25/18 16:40> Subjective - Date & Time of Evaluation Date of Evaluation: 04/25/18 Time of Evaluation: 11:47 - Subjective Subjective: PGY-1 Medicine Progress Note for Dr. Rodriguez Patient seen and examined at bedside, resting comfortably and in no acute distress. No acute overnight events reported. Patient denies any abdominal or flank pain. No fevers/chills, headaches, dizziness, chest pain, palpitations, sob, cough, n/v/d/c, dysuria or changes in stool. Objective - Vital Signs/Intake and Output Vital Signs (last 24 hours): Temp Pulse Resp BP Pulse Ox 98.6 F 77 20 137/80 99 04/25/18 08:00 04/25/18 08:00 04/25/18 08:00 04/25/18 08:00 04/25/18 08:00 Intake and Output: 04/25/18 04/25/18 06:59 18:59 Intake Total 1680 Balance 1680 - Medications Medications: Current Medications Acetaminophen (Tylenol 325mg Tab) 650 mg PO Q6 PRN PRN Reason: Pain, moderate (4-7) Last Admin: 04/24/18 17:19 Dose: 650 mg Docusate Sodium (Colace) 100 mg PO BID [facility] Last Admin: 04/25/18 09:19 Dose: 100 mg Hydromorphone HCl (Dilaudid) 0.3 mg IVP Q4H PRN PRN Reason: Pain, severe (8-10) Last Admin: 04/25/18 00:12 Dose: 0.3 mg Ceftriaxone Sodium 1 gm/ (Sodium Chloride) 100 mls @ 200 mls/hr IVPB DAILY [facility]; Protocol Last Admin: 04/25/18 09:19 Dose: 200 mls/hr Sodium Chloride (Sodium Chloride 0.45%) 1,000 mls @ 75 mls/hr IV .[id number] [facility] Last Admin: 04/25/18 09:14 Dose: Not Given Ondansetron HCl (Zofran Inj) 4 mg IVP Q6 PRN PRN Reason: Nausea/Vomiting Last Admin: 04/25/18 00:11 Dose: 4 mg Saccharomyces Boulardii (Florastor) 250 mg PO BID [facility] Last Admin: 04/25/18 09:19 Dose: 250 mg Sennosides (Senokot Tab) 8.6 mg PO DAILY [facility] Last Admin: 04/25/18 10:27 Dose: Not Given - Labs Labs: 04/25/18 07:09 04/25/18 07:09 PT 14.6 SECONDS (9.7-12.2) H 04/21/18 09:59 INR 1.3 04/21/18 09:59 - Constitutional Appears: Non-toxic, No Acute Distress - Head Exam Head Exam: ATRAUMATIC, NORMAL INSPECTION, NORMOCEPHALIC - Eye Exam Eye Exam: EOMI, Normal appearance Pupil Exam: NORMAL ACCOMODATION - ENT Exam ENT Exam: Mucous Membranes Moist - Neck Exam Neck Exam: Full ROM, Normal Inspection - Respiratory Exam Respiratory Exam: Clear to Ausculation Bilateral, NORMAL BREATHING PATTERN. absent: Rales, Rhonchi, Wheezes, Respiratory Distress - Cardiovascular Exam Cardiovascular Exam: REGULAR RHYTHM, +S1, +S2 - GI/Abdominal Exam GI & Abdominal Exam: Soft, Normal Bowel Sounds. absent: Distended, Firm, Guarding, Rigid, Tenderness, Organomegaly, Rebound - Extremities Exam Extremities Exam: Full ROM, Normal Capillary Refill, Normal Inspection. absent: Calf Tenderness, Joint Swelling, Pedal Edema - Back Exam Back Exam: NORMAL INSPECTION. absent: CVA tenderness (L), CVA tenderness (R), paraspinal tenderness - Neurological Exam Neurological Exam: Alert, Awake, CN II-XII Intact, Oriented x3 - Psychiatric Exam Psychiatric exam: Normal Affect, Normal Mood - Skin Skin Exam: Dry, Intact, Normal Color, Warm Assessment and Plan - Assessment and Plan (Free Text) Assessment: 38 yo F with PMHx of renal stones admitted with R hydroureter, pyelonephritis and SHERMAN s/p R ureteral stent placement (04/21). Plan: Pyelonephritis/UTI/Hydronephrosis -patient has hx of recent right sided kidney stone -afebrile, vitals wnl -Imaging -CT abd/pelvis w/o contrast (04/20): Punctate calcification lower pole collecting system right kidney. The right kidney is enlarged and appears to be under tension with increased diameter and some effacement of the intramedullary fat. There are mild perinephric infiltration changes with small amount of perinephric fluid. Right renal pelvis and most of the right ureter is dilated at however the previously noted tiny 3 mm calcification within the right UVJ region is not definitively identified at this time. Rule out UTI/pyelonephritis. Urinary bladder wall thickened in part due to incomplete distention or cystitis must also be considered. --UCx: final, no growth --Blood Cx: no growth x 2 after 4 days -Medications: Primaxin 500mg IVPB q6h (started on 04/20; d/c'd); started Rocephin 1 g daily 04/22/18 Dilaudid 0.3mg Q4H PRN Zofran 4mg IVP q6h prn 1/2 NS@75cc/hr -Received one dose of Cipro IV and Rocephin IV while in ED. -Procalcitonin elevated at 1.4, repeat level pending -Urology consulted (Dr. Garcia) -Patient underwent cystoscopy with placement of right ureteral stent 04/21/18 -f/u further uro recs -Nephro recs (Dr. Kirby) appreciated -Renal function improving: stable volume and electrolyte status -Stone risk assessment: collect 24 hr urine -Negative urine culture but antibiotics may have been given before sample collected; procalcitonin level elevated -Cont ceftriaxone (no renal dose adjustment needed); f/u repeat urine culture -Cont 1/2NS at 75 cc/hr -continue to avoid nephrotoxic agents (NSAIDS, etc) - Concern for need for longer duration of antibiotics given presence of ureteral stent -repeat urine culture negative (04/24) -given the fact that patient has done well with ceftriaxone, we can continue PO cefodoxime to complete 2 weeks at home -Procalcitonin elevated at 1.4, repeat level pending SHERMAN -Cr 2.1 today (baseline 0.8 on 04/18/18) -Continue to monitor -Nephro consulted (Dr. iKrby), recs appreciated -repeat renal US: Bilateral echogenic renal -avoid nephrotoxic agents -repeat urine cx negative Constipation--resolved colace 100 mg bid; Miralax started today, continue to monitor PPx, Diet, Disposition -VTE ppx - SCDs only, patient ambulates -GI ppx: not indicated -regular diet Case discussed with Dr. Jennifer Marrero DO, PGY-1 <Jesus Rodriguez - Last Filed: 05/09/18 13:49> Attending/Attestation - Attestation I have personally seen and examined this patient.: Yes I have fully participated in the care of the patient.: Yes I have reviewed all pertinent clinical information, including history, physical exam and plan: Yes Notes (Text): Pyelonephritis/UTI/Hydronephrosis Acute Renal Failure
--- NOTE | 2018-04-25 17:15 | CT ---
PROCEDURE: CT Abdomen and Pelvis without Oral or IV contrast. HISTORY: eval position of stent COMPARISON: CT abdomen pelvis without contrast performed 04/20/18, renal ultrasound performed 04/22/18 TECHNIQUE: Contiguous axial images of the abdomen and pelvis. No oral or IV contrast administered. Coronal and Sagittal reformats generated and reviewed. Radiation dose: Total exam DLP = 612.25 mGy-cm. This CT exam was performed using one or more of the following dose reduction techniques: Automated exposure control, adjustment of the mA and/or kV according to patient size, and/or use of iterative reconstruction technique. FINDINGS: There is limited evaluation of the solid organs without the administration of IV contrast. LOWER THORAX: Bibasilar atelectasis. Small bilateral pleural effusions. LIVER: Hepatomegaly. GALLBLADDER AND BILE DUCTS: Unremarkable unenhanced appearance. PANCREAS: Unremarkable unenhanced appearance. SPLEEN: Unremarkable unenhanced appearance. ADRENALS: Unremarkable unenhanced appearance. KIDNEYS AND URETERS: No hydronephrosis or obstructing renal calculus.4 mm right lower pole nonobstructing calculus. Right ureteral stent appears in satisfactory position. BLADDER: Under distended urinary bladder. REPRODUCTIVE: Enlarged heterogeneous uterus appears consistent with fibroid uterus. APPENDIX: The appendix appears within normal limits of caliber. No secondary signs of acute appendicitis. BOWEL: The stomach is nondistended. Lack of oral contrast limits evaluation for bowel pathology. The bowel loops appear within normal limits of caliber without evidence of intestinal obstruction. PERITONEUM: Small pelvic free fluid. No definite free air. LYMPH NODES: No bulky lymphadenopathy identified. VASCULATURE: No aortic aneurysm. BONES: No acute osseous abnormality is detected. OTHER FINDINGS: None. IMPRESSION: No hydronephrosis or obstructing renal calculus.4 mm right lower pole nonobstructing calculus. Right ureteral stent appears in satisfactory position. Hepatomegaly. Enlarged heterogeneous uterus appears consistent with fibroid uterus. Small pelvic free fluid. Small bilateral pleural effusions. Bibasilar atelectasis.
[2018-04-26] MEDS: Sodium Chloride 0.45% 1,000 ML IV SCH ×2 (00:11→12:20)
--- NOTE | 2018-04-26 09:16 | CP.PCM.PN ---
Subjective - Date & Time of Evaluation Date of Evaluation: 04/26/18 Time of Evaluation: 07:00 - Subjective Subjective: Nephrology progress note for Dr Kirby: Pt seen and examined at bedside. No acute events overnight. Denies complaints. States that she feels much better. Denies any celis, dizziness, fever, chills, sob, cp, abd pain, n/v/d. 12 Point ROS performed and neg other than stated above. Objective - Vital Signs/Intake and Output Vital Signs (last 24 hours): Temp Pulse Resp BP Pulse Ox 98.4 F 91 H 20 122/78 96 04/26/18 08:00 04/26/18 08:00 04/26/18 08:00 04/26/18 08:00 04/26/18 08:00 Intake and Output: 04/26/18 04/26/18 06:59 18:59 Intake Total 1740 Balance 1740 - Medications Medications: Current Medications Acetaminophen (Tylenol 325mg Tab) 650 mg PO Q6 PRN PRN Reason: Pain, moderate (4-7) Last Admin: 04/25/18 19:09 Dose: 650 mg Docusate Sodium (Colace) 100 mg PO BID [facility] Last Admin: 04/25/18 17:20 Dose: 100 mg Hydromorphone HCl (Dilaudid) 0.3 mg IVP Q4H PRN PRN Reason: Pain, severe (8-10) Last Admin: 04/25/18 22:45 Dose: 0.3 mg Ceftriaxone Sodium 1 gm/ (Sodium Chloride) 100 mls @ 200 mls/hr IVPB DAILY [facility]; Protocol Last Admin: 04/25/18 09:19 Dose: 200 mls/hr Sodium Chloride (Sodium Chloride 0.45%) 1,000 mls @ 75 mls/hr IV .[id number] [facility] Last Admin: 04/26/18 00:11 Dose: 75 mls/hr Ondansetron HCl (Zofran Inj) 4 mg IVP Q6 PRN PRN Reason: Nausea/Vomiting Last Admin: 04/25/18 21:03 Dose: 4 mg Saccharomyces Boulardii (Florastor) 250 mg PO BID [facility] Last Admin: 04/25/18 17:20 Dose: 250 mg Sennosides (Senokot Tab) 8.6 mg PO DAILY [facility] Last Admin: 04/25/18 10:27 Dose: Not Given - Labs Labs: 04/25/18 07:09 04/25/18 07:09 PT 14.6 SECONDS (9.7-12.2) H 04/21/18 09:59 INR 1.3 04/21/18 09:59 - Constitutional Appears: No Acute Distress - Head Exam Head Exam: ATRAUMATIC, NORMOCEPHALIC - Eye Exam Eye Exam: EOMI - ENT Exam ENT Exam: Mucous Membranes Moist - Respiratory Exam Respiratory Exam: Clear to Ausculation Bilateral. absent: Rales, Wheezes - Cardiovascular Exam Cardiovascular Exam: REGULAR RHYTHM, +S1, +S2 - GI/Abdominal Exam GI & Abdominal Exam: Soft. absent: Distended, Tenderness - Extremities Exam Extremities Exam: absent: Calf Tenderness - Neurological Exam Neurological Exam: Alert, Awake, CN II-XII Intact - Psychiatric Exam Psychiatric exam: Normal Mood - Skin Skin Exam: Dry, Intact Assessment and Plan - Assessment and Plan (Free Text) Assessment: 38 yo F admitted with R hydroureter, pyelonephritis and SHERMAN s/p stent placement. Nephrology consulted for SHERMAN consistent with likely some degree of ATN now resolving. -Renal function improving - stable volume and electrolyte status- Cr 1.7 this am - CT abd showed stent in satisfactory position -Stone risk assessment - collect 24 hr urine - performed yesterday -Negative urine culture but antibiotics may have been given before sample collected; procalcitonin level elevated -Cont ceftriaxone (no renal dose adjustment needed) -d/c 1/2NS at 75 cc/hr -Avoid nephrotoxic agents (NSAIDS, etc) -Concern for need for longer duration of antibiotics given presence of ureteral stent, Patient currently on ceftriaxone, we can continue PO cefpodoxime to complete 2 weeks at home -Recommend blood work including BMP in 1 week following discharge Case and plan was reviewed and discussed in detail with Dr Kirby.
[2018-04-26] MEDS: Saccharomyces Boulardi 250 mg Cap PO SCH (09:23)
[2018-04-26 11:45] LABS: BASO % 0.4 % (0.0-2.0); EOS # 0.1 K/uL (0.0-0.7); EOS % 1.7 % (0.0-4.0); HEMOGLOBIN 9.9 g/dL (11.0-16.0); LYMPH # 1.2 K/uL (1.0-4.3); LYMPH % 14.4 % (20.0-40.0); MEAN CELL VOLUME 83.1 fL (81.0-99.0); MEAN CORPUSCULAR HEMOGLOBIN 28.2 pg (27.0-31.0); MEAN PLATELET VOLUME 7.8 fL (7.2-11.7); MONO # 0.7 K/uL (0.0-0.8); MONO % 8.6 % (0.0-10.0); NEUT # 6.1 K/uL (1.8-7.0); NEUT % 74.9 % (50.0-75.0); RBC 3.51 Mil/uL (3.80-5.20); WHITE BLOOD COUNT 8.1 K/uL (4.8-10.8)
[2018-04-26 12:34] LABS: ALBUMIN 3.4 g/dL (3.5-5.0); CALCIUM 8.1 mg/dl (8.6-10.4)
[2018-04-26] MEDS ORDERED: Potassium Chloride 20 mEq/15 ml LIQ UD PO ONE ×2 (12:58→13:33)
--- NOTE | 2018-04-26 13:13 | CP.PCM.PN ---
Objective - Vital Signs/Intake and Output Vital Signs (last 24 hours): Temp Pulse Resp BP Pulse Ox 98.4 F 91 H 20 122/78 96 04/26/18 08:00 04/26/18 08:00 04/26/18 08:00 04/26/18 08:00 04/26/18 08:00 Intake and Output: 04/26/18 04/26/18 06:59 18:59 Intake Total 1740 Balance 1740 - Medications Medications: Current Medications Acetaminophen (Tylenol 325mg Tab) 650 mg PO Q6 PRN PRN Reason: Pain, moderate (4-7) Last Admin: 04/26/18 12:41 Dose: 650 mg Docusate Sodium (Colace) 100 mg PO BID [facility] Last Admin: 04/26/18 09:23 Dose: 100 mg Hydromorphone HCl (Dilaudid) 0.3 mg IVP Q4H PRN PRN Reason: Pain, severe (8-10) Last Admin: 04/25/18 22:45 Dose: 0.3 mg Ceftriaxone Sodium 1 gm/ (Sodium Chloride) 100 mls @ 200 mls/hr IVPB DAILY [facility]; Protocol Last Admin: 04/26/18 10:28 Dose: 200 mls/hr Sodium Chloride (Sodium Chloride 0.45%) 1,000 mls @ 75 mls/hr IV .[id number] [facility] Last Admin: 04/26/18 12:20 Dose: Not Given Ondansetron HCl (Zofran Inj) 4 mg IVP Q6 PRN PRN Reason: Nausea/Vomiting Last Admin: 04/25/18 21:03 Dose: 4 mg Potassium Chloride (Potassium Chloride Oral Soln) 20 meq PO ONCE ONE Stop: 04/26/18 12:59 Saccharomyces Boulardii (Florastor) 250 mg PO BID [facility] Last Admin: 04/26/18 09:23 Dose: Not Given Sennosides (Senokot Tab) 8.6 mg PO DAILY [facility] Last Admin: 04/26/18 09:23 Dose: 8.6 mg - Labs Labs: 04/26/18 11:31 04/26/18 11:31 PT 14.6 SECONDS (9.7-12.2) H 04/21/18 09:59 INR 1.3 04/21/18 09:59
--- NOTE | 2018-04-26 13:44 | PCM.URO ---
Urology Progress Note - Subjective Abdominal Pain: Yes - Objective Lab Results Last 24 Hours: Laboratory Results - last 24 hr 04/25/18 04/26/18 04/26/18 07:09 11:31 11:31 WBC 8.1 RBC 3.51 L Hgb 9.9 L Hct 29.1 L MCV 83.1 MCH 28.2 MCHC 34.0 RDW 16.0 H Plt Count 311 MPV 7.8 Neut % (Auto) 74.9 Lymph % (Auto) 14.4 L [place] % (Auto) 8.6 Eos % (Auto) 1.7 Baso % (Auto) 0.4 Neut # (Auto) 6.1 Lymph # (Auto) 1.2 [place] # (Auto) 0.7 Eos # (Auto) 0.1 Baso # (Auto) 0.0 Sodium 139 Potassium 3.5 L Chloride 103 Carbon Dioxide 23 Anion Gap 17 BUN 20 H Creatinine 1.7 H Est GFR ( Amer) 40 Est GFR (Non-Af Amer) 33 Random Glucose 97 Calcium 8.1 L Total Bilirubin 0.5 AST 24 ALT 18 Alkaline Phosphatase 80 Total Protein 6.8 Albumin 3.4 L Globulin 3.5 Albumin/Globulin Ratio 1.0 Procalcitonin 0.33 Intake & Output: Intake & Output 04/25/18 04/26/18 04/26/18 18:59 06:59 18:59 Intake Total 600 1740 Balance 600 1740 Intake: Intake, IV Amount 600 1200 Right Wrist 600 1200 Oral 540 Other: # Voids Urine, Voided 2 # Bowel Movements 0 Vital Signs: Vital Signs - 24 hr 04/25/18 04/26/18 04/26/18 16:00 00:00 08:00 Temperature 97.9 F 98.6 F 98.4 F Pulse Rate 62 68 91 H Respiratory 20 20 20 Rate Blood Pressure 149/85 150/78 122/78 O2 Sat by Pulse 98 97 96 Oximetry - Plan Advance Diet: Yes
[2018-04-26 16:30] VITALS: BP 149/89; PULSE 72; TEMP 98.5; O2SAT 98
--- NOTE | 2018-04-26 21:32 | CP.PCM.DIS ---
Provider - Provider Date of Admission: 04/20/18 15:08 Attending physician: Rome Phillip DO Primary care physician: None Consults: Urology - Dr. Jake Garcia Nephrology - Dr. Kirby Time Spent in preparation of Discharge (in minutes): 45 Diagnosis - Discharge Diagnosis (1) S/P cystoscopy with ureteral stent placement Status: Acute (2) Nephrolithiasis Status: Acute (3) Renal insufficiency Status: Acute Hospital Course - Lab Results Lab Results: Micro Results 04/20/18 16:30 Blood-Venous Blood Culture - Final NO GROWTH AFTER 5 DAYS 04/20/18 16:30 Blood-Venous Gram Stain - Final TEST NOT PERFORMED 04/20/18 17:00 Blood-Venous Blood Culture - Final NO GROWTH AFTER 5 DAYS 04/24/18 07:47 Urine,Clean Catch Urine Culture - Final No Growth (<1,000 CFU/ML) 04/20/18 17:10 Urine,Clean Catch Urine Culture - Final No Growth (<1,000 CFU/ML) Most Recent Lab Values WBC 8.1 K/uL (4.8-10.8) 04/26/18 11:31 RBC 3.51 Mil/uL (3.80-5.20) L 04/26/18 11:31 Hgb 9.9 g/dL (11.0-16.0) L 04/26/18 11:31 Hct 29.1 % (34.0-47.0) L 04/26/18 11:31 MCV 83.1 fL (81.0-99.0) 04/26/18 11:31 MCH 28.2 pg (27.0-31.0) 04/26/18 11:31 MCHC 34.0 g/dL (33.0-37.0) 04/26/18 11:31 RDW 16.0 % (11.5-14.5) H 04/26/18 11:31 Plt Count 311 K/uL (130-400) 04/26/18 11:31 MPV 7.8 fL (7.2-11.7) 04/26/18 11:31 Neut % (Auto) 74.9 % (50.0-75.0) 04/26/18 11:31 Lymph % (Auto) 14.4 % (20.0-40.0) L 04/26/18 11:31 Sharp % (Auto) 8.6 % (0.0-10.0) 04/26/18 11:31 Eos % (Auto) 1.7 % (0.0-4.0) 04/26/18 11:31 Baso % (Auto) 0.4 % (0.0-2.0) 04/26/18 11:31 Neut # (Auto) 6.1 K/uL (1.8-7.0) 04/26/18 11:31 Lymph # (Auto) 1.2 K/uL (1.0-4.3) 04/26/18 11:31 Sharp # (Auto) 0.7 K/uL (0.0-0.8) 04/26/18 11:31 Eos # (Auto) 0.1 K/uL (0.0-0.7) 04/26/18 11:31 Baso # (Auto) 0.0 K/uL (0.0-0.2) 04/26/18 11:31 Neutrophils % (Manual) 90 % (50-75) H 04/22/18 07:22 Band Neutrophils % 1 % (0-2) 04/22/18 07:22 Lymphocytes % (Manual) 4 % (20-40) L 04/22/18 07:22 Monocytes % (Manual) 5 % (0-10) 04/22/18 07:22 Toxic Granulation Present 04/21/18 08:43 Platelet Estimate Normal (NORMAL) 04/22/18 07:22 Large Platelets Present 04/21/18 08:43 Polychromasia Slight 04/22/18 07:22 Hypochromasia (manual) Slight 04/22/18 07:22 Poikilocytosis (manual Slight 04/21/18 08:43 Anisocytosis (manual) Slight 04/22/18 07:22 Tesha Cells Slight 04/21/18 08:43 PT 14.6 SECONDS (9.7-12.2) H 04/21/18 09:59 INR 1.3 04/21/18 09:59 pO2 27 mm/Hg (30-55) L 04/20/18 14:52 VBG pH 7.34 (7.32-7.43) 04/20/18 14:52 VBG pCO2 38 mmHg (40-60) L 04/20/18 14:52 VBG HCO3 19.8 mmol/L 04/20/18 14:52 VBG Total CO2 21.7 mmol/L (22-28) L 04/20/18 14:52 VBG O2 Sat (Calc) 52.2 % (40-65) 04/20/18 14:52 VBG Base Excess -4.8 mmol/L (0.0-2.0) L 04/20/18 14:52 VBG Potassium 3.1 mmol/L (3.6-5.2) L 04/20/18 14:52 Sodium 136.0 mmol/l (132-148) 04/20/18 14:52 Chloride 106.0 mmol/L (98-107) 04/20/18 14:52 Glucose 108 mg/dl (65-105) H 04/20/18 14:52 Lactate 1.5 mmol/L (0.7-2.1) 04/20/18 14:52 FiO2 21.0 % 04/20/18 14:52 Sodium 139 mmol/L (132-148) 04/26/18 11:31 Potassium 3.5 mmol/L (3.6-5.2) L 04/26/18 11:31 Chloride 103 mmol/L (98-107) 04/26/18 11:31 Carbon Dioxide 23 mmol/L (22-30) 04/26/18 11:31 Anion Gap 17 (10-20) 04/26/18 11:31 BUN 20 mg/dL (7-17) H 04/26/18 11:31 Creatinine 1.7 mg/dL (0.7-1.2) H 04/26/18 11:31 Est GFR ( Amer) 40 04/26/18 11:31 Est GFR (Non-Af Amer) 33 04/26/18 11:31 Random Glucose 97 mg/dL (65-105) 04/26/18 11:31 Calcium 8.1 mg/dl (8.6-10.4) L 04/26/18 11:31 Phosphorus 3.5 mg/dL (2.5-4.5) 04/25/18 07:09 Magnesium 1.9 mg/dL (1.6-2.3) 04/25/18 07:09 Total Bilirubin 0.5 mg/dL (0.2-1.3) 04/26/18 11:31 AST 24 U/L (14-36) 04/26/18 11:31 ALT 18 U/L (9-52) 04/26/18 11:31 Alkaline Phosphatase 80 U/L (38-126) 04/26/18 11:31 Total Protein 6.8 g/dL (6.3-8.3) 04/26/18 11:31 Albumin 3.4 g/dL (3.5-5.0) L 04/26/18 11:31 Globulin 3.5 gm/dL (2.2-3.9) 04/26/18 11:31 Albumin/Globulin Ratio 1.0 (1.0-2.1) 04/26/18 11:31 Procalcitonin 0.33 NG/ML (0.19-0.49) 04/25/18 07:09 Venous Blood Potassium 3.1 mmol/L (3.6-5.2) L 04/20/18 14:52 Urine Color Red (YELLOW) 04/20/18 12:58 Urine Clarity Hazy (Clear) 04/20/18 12:58 Urine pH 5.0 (5.0-8.0) 04/20/18 12:58 Ur Specific [place] 1.006 (1.003-1.030) 04/20/18 12:58 Urine Protein 2+ mg/dL (NEGATIVE) H 04/20/18 12:58 Urine Glucose (UA) Normal mg/dL (Normal) 04/20/18 12:58 Urine Ketones Negative mg/dL (NEGATIVE) 04/20/18 12:58 Urine Blood 3+ (NEGATIVE) H 04/20/18 12:58 Urine Nitrate Negative (NEGATIVE) 04/20/18 12:58 Urine Bilirubin Negative (NEGATIVE) 04/20/18 12:58 Urine Urobilinogen Normal mg/dL (0.2-1.0) 04/20/18 12:58 Ur Leukocyte Esterase 3+ Trini/uL (Negative) H 04/20/18 12:58 Urine WBC (Auto) 3560 /hpf (0-5) H 04/20/18 12:58 Urine RBC (Auto) 4133 /hpf (0-3) H 04/20/18 12:58 Ur Squamous Epith Cells 6 /hpf (0-5) H 04/20/18 12:58 Urine Bacteria Occ (<OCC) H 04/20/18 12:58 Ur Random Creatinine 40.8 mg/dL 04/23/18 06:52 Ur Random Sodium 107 mmol/L 04/23/18 06:52 Urine HCG, Qual Negative (NEGATIVE) 04/21/18 04:30 - Hospital Course Hospital Course: Medicine Discharge Summary for Hospitalist Service Rick Sparrow DO PGY-1, Multimedia Services Manager This is a 38 year old female with a past medical history of recently diagnosed kidney stone who presented with worsening right sided flank pain on 04/20/18. Patient was seen in ED at [facility] on 04/18/18 and was found to have 3mm stone in the right UVJ. She was discharged home with Ibuprofen, Cipro, Flomax, and Oxycodon. Patient reported taking her medications as directed but the pain had just continued to increase. The pain was located on her right flank and radiated down to her groin. She also experienced suprapubic pain as well. Earlier on day of admission she was nauseous and vomited. Patient denied any pain or burning with urination. She denied fevers, chills, diarrhea, chest pain, shortness of breath, headache, palpitations, numbness or tingling. Pt was admitted for Pyelonephritis, UTI and management of R-sided kidney stone. Pt had cystoscopy and placement of R ureteral stent placed by Dr. Jake Garcia (Urology) on 04/21/18. During admission, pt had elevated Creatinine despite having normal Creatinine on day of admission. Nephrology was consulted (Dr. Kirby), who recommended urine studies and trending levels until pt trended down closer to baseline. Pt was treated for pyelonephritis/UTI with Primaxin, which was later switched to Rocephin. Blood and urine cxs demonstrated no growth. Pertinent imaging: CT abd/pelvis w/o contrast (04/20): Punctate calcification lower pole collecting system right kidney. The right kidney is enlarged and appears to be under tension with increased diameter and some effacement of the intramedullary fat. There are mild perinephric infiltration changes with small amount of perinephric fluid. Right renal pelvis and most of the right ureter is dilated at however the previously noted tiny 3 mm calcification within the right UVJ region is not definitively identified at this time. Rule out UTI/pyelonephritis. Urinary bladder wall thickened in part due to incomplete distention or cystitis must also be considered. Repeat CT abd pelvis (04/25): no hydronephrosis or obstructing renal calculus present. 4 mm L lower pole non-obstructing calculus. R ureteral stent appears in satisfactory position. Renal U/s (04/22) demonstrated no hydronephrosis. Patient was discharged to home in stable condition on 04/26/18. Instructed to follow-up with [facility] (Dr. Ohara) within 1 week of discharge. Repeat BMP within 1 week. Follow-up results of 24-hr urine test outpatient. Instructed to follow-up with Dr. Jake Garcia (Urology) within 1-2 weeks of discharge for removal of R ureteral stent. Pt was instructed to take PO Vantin for total of 7 days of antibiotic therapy. Discharge Exam - Head Exam Head Exam: ATRAUMATIC, NORMOCEPHALIC - Eye Exam Eye Exam: EOMI, Normal appearance, PERRL - ENT Exam ENT Exam: Mucous Membranes Moist - Respiratory Exam Respiratory Exam: Clear to PA & Lateral, NORMAL BREATHING PATTERN, UNREMARKABLE - GI/Abdominal Exam GI & Abdominal Exam: Normal Bowel Sounds, Soft, Unremarkable. absent: Distended, Firm, Guarding, Rebound, Rigid, Tenderness - Back Exam Back exam: FULL ROM, NORMAL INSPECTION. absent: CVA tenderness (L), CVA tenderness (R) - Neurological Exam Neurological exam: Alert, CN II-XII Intact, Normal Gait, Oriented x3, Reflexes Normal - Psychiatric Exam Psychiatric exam: Normal Affect, Normal Mood - Skin Skin Exam: Dry, Intact, Normal Color, Warm Discharge Plan - Discharge Medications Prescriptions: Cefpodoxime [Vantin] 200 mg PO Q12H #14 tab Saccharomyces Boulardi [Florastor] 250 mg PO BID #14 cap - Follow Up Plan Condition: GUARDED Disposition: HOME/ ROUTINE Instructions: Constipation, Adult (DC), Renal Failure Diet (DC) Additional Instructions: Patient medically stable for discharge to home. Please follow-up with [facility] within 1 week of discharge. Please follow-up with Urology (Dr. Jake Garcia) within 1-2 weeks of discharge for removal of R ureteral stent. Please take antibiotic and probiotic as prescribed, please complete full course for the next 7 days. Please have repeat BMP 1 week after discharge to monitor creatinine level. Should symptoms recur or worsen, please call your primary care physician or report to your nearest emergency department. Referrals: Jake Garcia MD [Staff Provider] - Lisa Ohara MD [Staff Provider] -
--- NOTE | 2018-05-07 11:41 | OP ---
PROCEDURE DATE: 04/21/2018 PREOPERATIVE DIAGNOSES: Urolithiasis, hematuria, hydronephrosis, severe renal colic, ongoing. POSTOPERATIVE DIAGNOSES: Urolithiasis, hematuria, hydronephrosis, severe renal colic, ongoing. PROCEDURES: Exam under anesthesia, cystoscopy, a right retrograde pyelogram, insertion of right double-J stent. SURGEON: Chas Garcia MD COMPLICATIONS: There were no complications. BLOOD LOSS: Less than 10 mL. UROLOGY OPERATIVE FINDINGS: Basically that of stone and hydro. No other abnormalities, no pelvic or rectal masses. INDICATIONS: See history and physical and consultation. The patient with severe pain, it is ongoing. She is now here for the above procedure. We discussed risks, benefits, and treatment alternatives. DESCRIPTION OF PROCEDURE: After obtaining informed consent, the patient was placed on the table. Routine monitor placed. Time-outs were called. The cystoscope introduced via urethra. Ureteral orifice identified. Maintenance Dispatcher film was performed. Retrograde pyelogram was performed. The wire was passed up to the kidney, double-J stent was inserted. The patient tolerated the procedure without complication. The bladder was emptied and cystoscope removed. Again, just to remind, I spoke to the patient before the procedure. During the consultation, I spoke to the patient in the holding area. Afterwards, I provided the patient an opportunity. I explained to the patient that she has a stent in and the stent cannot stay for more than three months. I would encourage the patient to have the stent and the stone treated as quickly as possible. We will have to discuss the location. I explained to her our preferred treatment is the [facility] for various social reasons. for various social reasons. They may prefer to be treated here at [facility]. We will discuss this with the patient further in terms of availability for ureteroscopy, laser lithotripsy versus the possibility for shock wave lithotripsy versus various treatments. In the meantime, the patient has a stent inserted and will need followup. She still has the stone in place. Chas Garcia MD
--- NOTE | 2018-05-07 17:17 | CON ---
UROLOGY CONSULT REASON FOR CONSULTATION: Severe renal colic. HISTORY OF PRESENT ILLNESS: Ms. Sadie Schroeder is a pleasant lady who presents with severe renal colic. 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 Anyway, she presents on a social note. She is aware of her medical treatment. She presents here with severe renal colic with a stone. See the plans listed below. She has no gross hematuria currently. She has underlying hematuria and hydronephrosis. We are going to actually place a stent. PAST MEDICAL HISTORY AND SURGICAL HISTORY: Listed in the chart. No history of an [place] or CVA. SOCIAL HISTORY: On a social note, as mentioned she has recently moved here. 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 from I think she said [place]. REVIEW OF SYSTEMS: No weight loss, chest pain. No general constitutional complaints. PHYSICAL EXAMINATION: GENERAL: Well-nourished female in no apparent distress. VITAL SIGNS: Within normal limits, included in the chart. LUNGS: Clear. HEART: Normal S1 and S2. ABDOMEN: Overall soft. No major CVA tenderness noted. PELVIC EXAM: No pelvic or rectal masses. LABORATORY DATA: See chart. CT scan noted. ASSESSMENT: Ms Sadie Schroeder is a very pleasant lady with severe renal colic who was admitted to the hospital. She has some underlying issues. We discussed the options with the patient at this point. We discussed the possibility for shock wave lithotripsy. We discussed possibility of laser lithotripsy. We discussed various options. However, given the location for the stone and her general overall condition at this point, our first goal is just going to be just stent the patient to relieve the pain. I explained to the patient perhaps if the stone is migrated more distally, we will consider ureteroscopy, laser lithotripsy at the same time. We will consent her for everything. But the initial plan is to at least drain the kidney and provide a stent. The plan is as follows: 1. Maintain antibiotics. 2. Cysto retrograde and a stent and then further plans will follow. Thank you for the urology consultation. Chas Garcia MD [facility] # [id number]
--- NOTE | 2018-05-08 04:59 | PN ---
DATE: 04/22/2018 SUBJECTIVE: See previously dictated consultation note and Urology operative note, patient underwent. This is now 04/22/2018. On 04/21/2018, the patient underwent an emergency cystoscopy and stent insertion. She is currently awake and feeling much better. As explained in the consultation and operative note, we were concerned as an emergency for impending sepsis. We passed the stent even on the Sunday. The patient is now feeling much better. The patient is currently resting comfortably. See the plans listed below. PAST MEDICAL AND SURGICAL HISTORY: No other changes. PHYSICAL EXAMINATION: No major changes. DIAGNOSES: 1. Urolithiasis. 2. Severe renal colic. ASSESSMENT AND PLAN: This is a very pleasant lady, who is now status post cystoscopy and stent. Has very underlying medical issues to be addressed by the medical team. From Neurology standpoint, the rest of the treatments will be outpatient. I have explained to the patient our findings and recommendations. She will continue antibiotics. She will continue medical management. From a Urology standpoint, I explained to the patient that with the stent in place, she has opted 3 months, but we encouraged the patient to be treated as quickly as possible. She has my phone number, my cell number. We have actually talked by phone. At this point, I have explained to the patient we will continue to follow her. She should be when she is ready to follow her treatments. We are going to try to encourage the patient for a stone center treatment. We asked her she have this worked up. There maybe some obstacles, but we are working on them. In the meantime, the patient is feeling much better with the stent in place. Actually, is having minimal stent pain. She understand she has a stent though and need further treatment today. We will make arrangements for outpatient treatment. Chas Garcia MD
== END 2018-04-26 18:23 | disposition home or self-care (01) | DRG 720 ==
LOC: C.ER 11:27 → C.9E 15:08 → C.3T 18:46
PROVIDERS: ADMIT Hospitalist; ATTEND Hospitalist
PROC: BT1DZZZ Fluoroscopy of Right Kidney, Ureter and Bladder (ICD-10-PCS; 2018-04-21)
PROC: 0T768DZ Dilation of Right Ureter with Intraluminal Device, Via Natural or Artificial Opening Endoscopic (ICD-10-PCS; principal; 2018-04-21 10:30)
DX: A41.9 Sepsis, unspecified organism (principal); N17.0 Acute kidney failure with tubular necrosis; E87.2 Acidosis; N20.2 Calculus of kidney with calculus of ureter; N13.6 Pyonephrosis; E87.6 Hypokalemia; N13.8 Other obstructive and reflux uropathy; K59.00 Constipation, unspecified

== ENCOUNTER 2018-04-27 18:16 | Emergency (ER) | payer MEDICAID ==
[2018-04-27 18:29] VITALS: BMI 29.9
[2018-04-27] MEDS ORDERED: Sodium Chloride 0.9% 1,000 ML IV ONE (19:28)
[2018-04-27] MEDS ORDERED: Sodium Chloride 0.9% 1,000 ML ONE (19:37)
[2018-04-27 19:40] LABS: BASO # 0.1 K/uL (0.0-0.2); BASO % 0.9 % (0.0-2.0); EOS # 0.1 K/uL (0.0-0.7); EOS % 1.9 % (0.0-4.0); HEMOGLOBIN 10.7 g/dL (11.0-16.0); LYMPH # 1.2 K/uL (1.0-4.3); LYMPH % 15.8 % (20.0-40.0); MEAN CELL VOLUME 84.2 fL (81.0-99.0); MEAN CORPUSCULAR HEMOGLOBIN 27.7 pg (27.0-31.0); MEAN PLATELET VOLUME 7.9 fL (7.2-11.7); MONO # 0.5 K/uL (0.0-0.8); MONO % 6.6 % (0.0-10.0); NEUT # 5.5 K/uL (1.8-7.0); NEUT % 74.8 % (50.0-75.0); NRBC % 0.1 % (0.0-2.0); RBC 3.86 Mil/uL (3.80-5.20); RED CELL DISTRIBUTION WIDTH 16.1 % (11.5-14.5); WHITE BLOOD COUNT 7.4 K/uL (4.8-10.8)
[2018-04-27 19:42] LABS: HCG,QUALITATIVE URINE NEGATIVE (NEGATIVE)
[2018-04-27 19:47] LABS: SQUAMOUS EPITHIAL 7 /hpf (0-5); URINE BACTERIA MANY (<OCC); URINE BILIRUBIN NEGATIVE (NEGATIVE); URINE BLOOD 3+ (NEGATIVE); URINE CLARITY Clear (Clear); URINE COLOR Yellow (YELLOW); URINE GLUCOSE (UA) NORMAL (Normal); URINE LEUKOCYTE ESTERASE 1+ Leu/uL (Negative); URINE PROTEIN 2+ mg/dL (NEGATIVE); URINE UROBILINOGEN NORMAL mg/dL (0.2-1.0)
[2018-04-27 19:53] LABS: ALB/GLOB RATIO 0.9 (1.0-2.1); ALBUMIN 3.8 g/dL (3.5-5.0); ALT/SGPT 14 U/L (9-52); AST/SGOT 36 U/L (14-36); BLOOD UREA NITROGEN 16 mg/dL (7-17); CALCIUM 8.9 mg/dl (8.6-10.4); GFR NON-AFRICAN AMERICAN 36
[2018-04-27 20:03] LABS: CK-MB 0.24 ng/mL (0.0-3.38)
--- NOTE | 2018-04-27 20:16 | C.PDOC ---
History Of Present Illness 38 year old female presents to ED complaining of feeling of lightheaded, headache, and sensation of heart racing since this morning. Patient was just discharged from [facility] for kidney stones, was Rxs for Florastor and Vantin. Patient started taking Florastor 2 days ago and Vanitin this morning. She denies chest pain, shortness of breath, vomiting, diarrhea, abdominal pain, flank pain, dysuria/hematuria. Time Seen by Provider: 04/27/18 19:02 Chief Complaint (Nursing): Palpitations History Per: Patient History/Exam Limitations: no limitations Onset/Duration Of Symptoms: Hrs Current Symptoms Are (Timing): Still Present Severity: Mild Exacerbating Factors: Other (new medications - antibiotic, probiotic ) Past Medical History Reviewed: Historical Data, Nursing Documentation, Vital Signs Vital Signs: Last Vital Signs Temp 99.2 F 04/27/18 18:29 Pulse 81 04/27/18 18:29 Resp 20 04/27/18 18:29 BP 134/89 04/27/18 18:29 Pulse Ox 98 04/27/18 18:29 - Medical History PMH: Kidney Stones Surgical History: No Surg Hx Family History: States: No Known Family Hx - Social History Hx Alcohol Use: Yes (socially) Hx Substance Use: No Review Of Systems Constitutional: Negative for: Fever, Chills Cardiovascular: Positive for: Light Headedness, Other (Heart racing sensation.). Negative for: Chest Pain Respiratory: Negative for: Shortness of Breath Gastrointestinal: Negative for: Vomiting, Abdominal Pain, Diarrhea Genitourinary: Negative for: Dysuria, Hematuria Neurological: Positive for: Headache Physical Exam - Physical Exam Appears: Well, Non-toxic, No Acute Distress Skin: Warm, Dry Eye(s): bilateral: Normal Inspection Oral Mucosa: Moist Neck: Supple Cardiovascular: Rhythm Regular Respiratory: Normal Breath Sounds, No Rales, No Rhonchi, No Wheezing Gastrointestinal/Abdominal: Normal Exam, Bowel Sounds, Soft, No Tenderness Extremity: Normal ROM, No Pedal Edema, No Calf Tenderness Pulses: Left Dorsalis Pedis: Normal, Right Dorsalis Pedis: Normal Neurological/Psych: Oriented x3 Gait: Steady ED Course And Treatment - Laboratory Results Result Diagrams: 04/27/18 19:35 04/27/18 19:35 ECG: Interpreted By Me, Viewed By Me (NSR 74 bpm, normal axis, flattened T waves in I, II, aVL, aVF, and T wave inversions in V4-V6, no acute ST changes) O2 Sat by Pulse Oximetry: 98 (RA) Pulse Ox Interpretation: Normal Progress Note: Blood work, UA, UPreg, EKG ordered and reviewed. Patient given IV NS bolus, 1 dose IV ciprofloxacin in ED. Antibiotics changed to Ciprofloxacin PO. Reevaluation Time: 22:35 Reassessment Condition: Improved (Patient reassessed, is resting comfortably and states she feels better. Vitals WNL. Will change antibiotics to Ciprofloxacin PO. Patient instructed to follow up with her urologist as scheduled, and she understands she should return to ED if her symptoms worsen.) Disposition Counseled Patient/Family Regarding: Studies Performed, Diagnosis, Need For Followup, Rx Given - Disposition Referrals: Jake Garcia MD [Staff Provider] - [facility] [Outside] Disposition: HOME/ ROUTINE Disposition Time: 22:45 Condition: STABLE Additional Instructions: FOLLOW UP WITH MEDICAL CLINIC IN 1-2 DAYS, AND WITH YOUR UROLOGIST SCHEDULED RETURN TO ER IF YOU HAVE ANY CONCERNING SYMPTOMS DRINK PLENTY OF WATER/CLEAR FLUIDS Prescriptions: Ciprofloxacin [Cipro] 1 tab PO BID #14 tab Instructions: Urinary Tract Infection, Adult (DC), Adverse Drug Reactions, Adult (DC) Forms: [employer] (Uzbek) Print Language: HUNGARIAN - POA Present On Arrival: None - Clinical Impression Clinical Impression: Medication side effects, UTI (urinary tract infection) - Scribe Statement The provider has reviewed the documentation as recorded by the Vicky Brito Neo Provider Attestation: All medical record entries made by the Vicky were at my direction and personally dictated by me. I have reviewed the chart and agree that the record accurately reflects my personal performance of the history, physical exam, medical decision making, and the department course for this patient. I have also personally directed, reviewed, and agree with the discharge instructions and disposition.
[2018-04-27] MEDS ORDERED: Ciprofloxacin 400mg/200ml D5W 400 MG/200 ML BAG IVPB STA (20:58)
[2018-04-27] MEDS ORDERED: Ciprofloxacin 400mg/200ml D5W 400 MG/200 ML BAG IVPB ONE (21:05)
[2018-04-27 22:11] VITALS: BP 128/83; PULSE 78; RESP 15; TEMP 98.7
[2018-04-27 22:17] VITALS: O2SAT 98
--- NOTE | 2018-04-29 21:19 | CARD ---
APPROVED REPORT Date of service: 04/27/2018 EKG Measurement Heart [id number] <Conclusion> Normal sinus rhythm Nonspecific T wave abnormality Abnormal ECG
--- NOTE | 2018-04-29 21:24 | CARD ---
APPROVED REPORT Date of service: 04/27/2018 EKG Measurement Heart [id number] <Conclusion> Sinus rhythm with marked sinus arrhythmia Possible Left atrial enlargement Nonspecific T wave abnormality Abnormal ECG
== END 2018-04-27 22:41 | disposition home or self-care (01) ==
LOC: C.ER 18:16
DX: R51 Headache (principal); R42 Dizziness and giddiness; T50.995A Adverse effect of other drugs, medicaments and biological substances, initial encounter; N39.0 Urinary tract infection, site not specified
CPT/HCPCS: 80053; 81001; 82550; 82553; 82948; 84484; 84703; 85025; 87086; 93005; 96361; 96365; 99285; J0744; J7030

== ENCOUNTER 2018-05-12 17:31 | Emergency (ER) | payer MEDICAID ==
[2018-05-12 17:31] VITALS: BMI 29.9
[2018-05-12] MEDS ORDERED: Sodium Chloride 0.9% 1,000 ML IV ONE (18:15)
[2018-05-12] MEDS ORDERED: Sodium Chloride 0.9% 1,000 ML ONE (18:35)
[2018-05-12 18:37] LABS: BASO # 0.1 K/uL (0.0-0.2); BASO % 0.9 % (0.0-2.0); EOS # 0.3 K/uL (0.0-0.7); EOS % 3.5 % (0.0-4.0); HEMOGLOBIN 11.8 g/dL (11.0-16.0); LYMPH # 1.8 K/uL (1.0-4.3); LYMPH % 22.5 % (20.0-40.0); MEAN CELL VOLUME 84.2 fL (81.0-99.0); MEAN CORPUSCULAR HEMOGLOBIN 28.2 pg (27.0-31.0); MEAN CORPUSCULAR HGB CONC 33.6 g/dL (33.0-37.0); MONO # 0.4 K/uL (0.0-0.8); MONO % 4.9 % (0.0-10.0); NEUT # 5.3 K/uL (1.8-7.0); NEUT % 68.2 % (50.0-75.0); NRBC % 0.1 % (0.0-2.0); RBC 4.19 Mil/uL (3.80-5.20); RED CELL DISTRIBUTION WIDTH 16.7 % (11.5-14.5); WHITE BLOOD COUNT 7.8 K/uL (4.8-10.8)
[2018-05-12 18:38] LABS: HCG,QUALITATIVE URINE NEGATIVE (NEGATIVE)
[2018-05-12 18:45] LABS: SQUAMOUS EPITHIAL 16 /hpf (0-5); URINE BACTERIA MOD (<OCC); URINE BILIRUBIN NEGATIVE (NEGATIVE); URINE BLOOD 3+ (NEGATIVE); URINE CLARITY Clear (Clear); URINE COLOR Yellow (YELLOW); URINE GLUCOSE (UA) NORMAL (Normal); URINE LEUKOCYTE ESTERASE 2+ Leu/uL (Negative); URINE PROTEIN 1+ mg/dL (NEGATIVE); URINE UROBILINOGEN NORMAL mg/dL (0.2-1.0)
[2018-05-12 18:50] LABS: ALB/GLOB RATIO 1.1 (1.0-2.1); ALBUMIN 4.3 g/dL (3.5-5.0); ALT/SGPT 26 U/L (9-52); AST/SGOT 21 U/L (14-36); BLOOD UREA NITROGEN 13 mg/dL (7-17); CALCIUM 9.5 mg/dl (8.6-10.4); GFR NON-AFRICAN AMERICAN > 60; LIPASE 41 U/L (23-300)
--- NOTE | 2018-05-12 19:37 | C.PDOC ---
History Of Present Illness 38 y/o female, with PMHx of kidney stone on right and had stent placed by Dr. Jake Garcia on 04/20/18, presents to ED complaining of right flank and abdominal pain that started last night, associated with nausea since this morning. Denies fever, vomiting, diarrhea, or dysuria. Time Seen by Provider: 05/12/18 17:49 Chief Complaint (Nursing): Back Pain History Per: Patient History/Exam Limitations: no limitations Onset/Duration Of Symptoms: Days Current Symptoms Are (Timing): Still Present Past Medical History Reviewed: Historical Data, Nursing Documentation, Vital Signs Vital Signs: Last Vital Signs Temp 98.7 F 05/12/18 17:35 Pulse 87 05/12/18 19:14 Resp 18 05/12/18 19:14 BP 108/72 05/12/18 19:14 Pulse Ox 96 05/12/18 19:14 - Medical History PMH: Kidney Stones - [facility] Procedures DILATION OF RIGHT URETER WITH INTRALUMINAL DEVICE, ENDO (04/20/18) FLUOROSCOPY OF RIGHT KIDNEY, URETER AND BLADDER (04/20/18) Family History: States: No Known Family Hx - Social History Hx Alcohol Use: Yes (socially) Hx Substance Use: No Review Of Systems Constitutional: Negative for: Fever Gastrointestinal: Positive for: Nausea, Abdominal Pain (right flank and abdominal). Negative for: Vomiting, Diarrhea Genitourinary: Negative for: Dysuria, Hematuria Physical Exam - Physical Exam Appears: Non-toxic, No Acute Distress, Other (Comfortable) Skin: Warm, Dry Head: Atraumatic, Normacephalic Eye(s): bilateral: Normal Inspection Oral Mucosa: Moist Cardiovascular: Rhythm Regular, No Murmur Respiratory: Normal Breath Sounds, No Rales, No Rhonchi, No Wheezing Gastrointestinal/Abdominal: Tenderness (mild RLQ tenderness), No Guarding, No Rebound Back: No CVA Tenderness Neurological/Psych: Oriented x3, Normal Speech Gait: Steady ED Course And Treatment - Laboratory Results Result Diagrams: 05/12/18 18:34 05/12/18 18:34 O2 Sat by Pulse Oximetry: 96 (RA) Pulse Ox Interpretation: Normal Progress Note: Bloodwork, urine, and x-ray of abdomen ordered. Gave patient IV fluids and toradol. Disposition Counseled Patient/Family Regarding: Studies Performed, Diagnosis, Need For Followup, Rx Given - Disposition Referrals: Jake Garcia MD [Staff Provider] - Disposition: HOME/ ROUTINE Disposition Time: 19:55 Condition: STABLE Additional Instructions: FOLLOW UP WITH YOUR UROLOGIST TOMORROW IN THE OFFICE DRINK PLENTY OF FLUIDS USE MEDICATIONS NEEDED/DIRECTED RETURN TO ER IF SYMPTOMS WORSEN Prescriptions: Ciprofloxacin [Cipro] 1 tab PO BID #14 tab Naproxen 375 mg PO BID PRN #20 tablet PRN Reason: pain Ondansetron [Zofran Odt] 4 mg PO Q8 PRN #15 odt PRN Reason: Nausea/Vomiting Instructions: Urinary Tract Infection, Adult (DC), Ureteral Stent (DC) Forms: [employer] ([employer]) (Bahraini) Print Language: BULGARIAN - Clinical Impression Clinical Impression: Pain due to ureteral stent, UTI (urinary tract infection) - Scribe Statement The provider has reviewed the documentation as recorded by the Vicky Arboleda Provider Attestation: All medical record entries made by the Morenoibnena were at my direction and personally dictated by me. I have reviewed the chart and agree that the record accurately reflects my personal performance of the history, physical exam, medical decision making, and the department course for this patient. I have also personally directed, reviewed, and agree with the discharge instructions and disposition.
[2018-05-12 20:13] VITALS: BP 194/88; PULSE 108; RESP 16; O2SAT 100
[2018-05-12 21:09] VITALS: TEMP 98.3
--- NOTE | 2018-05-13 09:38 | RAD ---
Date of service: 05/12/2018 HISTORY: KUB to eval right ureteral stent COMPARISON: 04/21/2018. FINDINGS: BOWEL: There is moderate amount of stool in the colon. The bowel gas pattern is nonobstructive. BONES: Normal. OTHER FINDINGS: There is a right double J pelviureteral stent in place. IMPRESSION: Right double J pelviureteral stent in place. Constipation. Nonobstructive bowel-gas pattern.
== END 2018-05-12 20:05 | disposition home or self-care (01) ==
LOC: C.ER 17:31 → SUPCPDRO 17:31 → C.ER 20:05
DX: N39.0 Urinary tract infection, site not specified (principal); T83.84XA Pain due to genitourinary prosthetic devices, implants and grafts, initial encounter
CPT/HCPCS: 74018; 80053; 81001; 83690; 84703; 85025; 87086; 96361; 96374; 99285; J1885; J7030

== ENCOUNTER 2018-08-27 10:01 | Outpatient (CLI) | payer MEDICAID | END 2018-08-27 10:02 | disposition home or self-care (01) | LOC: C.USIC 10:01 | DX: N20.0 Calculus of kidney (principal) ==

== ENCOUNTER 2018-10-24 13:57 | Outpatient (CLI) | payer MEDICAID | END 2018-10-24 13:58 | disposition home or self-care (01) | LOC: C.RADIC 13:57 | DX: M51.27 Other intervertebral disc displacement, lumbosacral region (principal) ==